=== PATIENT | female | born 1970 | race Caucasian/White ===

== ENCOUNTER 2020-07-30 09:17 | Outpatient (REF) | payer OTHER, SELFPAY ==
--- NOTE | ~2020-07-30 | US_ITS ---
EXAMINATION: US DIAGNOSTIC ULTRASOUND BREAST, RIGHT CLINICAL INFORMATION: Palpable abnormality superiorly. COMPARISON: Mammography of same day and studies dating back to August 20, 2014. TECHNIQUE: Ultrasound of the breast is performed with real-time walker scale imaging and color Doppler. FINDINGS: Ultrasound of the right breast in region of palpable abnormality 1:00 position 8 cm from nipple demonstrates a minimally complex large cyst with very thin septation without internal vascularity. There is a smooth back wall. The cyst measures approximately 4.0 x 2.4 cm in size. Ultrasound examination of the left breast in region of palpable abnormality demonstrates 2 adjacent cysts each measuring 1.5 cm in largest dimension. There are a few other smaller adjacent cysts are present. No suspicious solid masses or region of abnormal distal sound shadowing associated in either right or left breast. Results are discussed with the patient at time of visit. US/US breast RT limited IMPRESSION: Palpable abnormalities correspond to bilateral breast cysts. ASSESSMENT: BI-RADS 2: Benign RECOMMENDATION: Routine annual mammography screening.
--- NOTE | ~2020-07-30 | US_ITS ---
EXAMINATION: US DIAGNOSTIC ULTRASOUND BREAST, LEFT CLINICAL INFORMATION: Probable abnormality medially. COMPARISON: Mammography of same day and ultrasound study of September 04, 2019 and studies dating back to August 20, 2014. TECHNIQUE: Ultrasound of the breast is performed with real-time walker scale imaging and color Doppler. FINDINGS: Ultrasound of the right breast in region of palpable abnormality 1:00 position 8 cm from nipple demonstrates a minimally complex large cyst with very thin septation without internal vascularity. There is a smooth back wall. The cyst measures approximately 4.0 x 2.4 cm in size. Ultrasound examination of the left breast in region of palpable abnormality demonstrates 2 adjacent cysts each measuring 1.5 cm in largest dimension. There are a few other smaller adjacent cysts are present. No suspicious solid masses or region of abnormal distal sound shadowing associated in either right or left breast. Results are discussed with the patient at time of visit. US/US breast LT limited IMPRESSION: Palpable abnormalities correspond to bilateral breast cysts. ASSESSMENT: BI-RADS 2: Benign RECOMMENDATION: Routine annual mammography screening.
--- NOTE | ~2020-07-30 | MM_ITS ---
EXAMINATION: MM BREAST DIAGNOSTIC DIGITAL TOMOSYNTHESIS, BILATERAL US BREAST TARGETED, BILATERAL CLINICAL INFORMATION: Bilateral breast lumps The lifetime risk of breast cancer based on the Tyrer-Cuzick Model is 17.3%. COMPARISON: Mammography: 09/01/2019 and studies dating back to 08/20/2014. TECHNIQUE: Digital breast tomosynthesis is performed in both the craniocaudal and mediolateral oblique views along with computer-aided detection (CAD). Synthesized 2D images are generated from the tomosynthesis. Bilateral mediolateral, oblique, and craniocaudal views as well as right exaggerated craniocaudal view. Bilateral targeted breast ultrasound. FINDINGS: The breasts are extremely dense, which lowers the sensitivity of mammography (ACR BI-RADS breast composition Category d). The region of palpable abnormality, deep superior aspect of the right breast, there is noted be a well-circumscribed lesion measuring 4.1 cm in largest dimension. The palpable region about the medial aspect of the left breast is seen on mediolateral oblique projection image to be a circumscribed density measuring 1.0 cm in maximum dimension. Ultrasound of the right breast in region of palpable abnormality 1 o'clock position 8 cm from nipple, demonstrates a minimally complex large cyst with very thin septation without internal vascularity. There is a smooth back wall. The cyst measures approximately 4.0 x 2.4 cm in size. Ultrasound examination of the left breast in region of palpable abnormality demonstrates 2 adjacent cysts each measuring 1.5 cm in largest dimension. There are a few other smaller adjacent cysts present. No suspicious solid masses or region of abnormal distal sound shadowing associated in either right or left breast. Results are discussed with the patient at time of visit. MM/MM tomosynthesis diagnostic BI IMPRESSION: Palpable abnormalities correspond to bilateral breast cysts. ASSESSMENT: BI-RADS 2: Benign RECOMMENDATION: Routine annual mammography screening. This patient's information was entered into a reminder system with a target due date for their next mammogram.
== END 2020-07-30 09:18 | disposition home or self-care (01) ==
LOC: HO.MAMMO 09:17
PROVIDERS: PCP Internal Medicine; Visit Provider Internal Medicine
DX: N63.11 Unspecified lump in the right breast, upper outer quadrant (principal); N63.22 Unspecified lump in the left breast, upper inner quadrant
CPT/HCPCS: 76642; 77062; 77066

== ENCOUNTER 2020-09-13 09:15 | Outpatient (REF) | payer OTHER, SELFPAY ==
[2020-09-13 11:06] LABS: MANUAL DIFF FLAG NO
[2020-09-13 11:21] LABS: Basophils Percent Auto 0.4 % (0-2); Eosinophils Absolute Auto 2.1 X10*3/uL (0.0-0.4); Eosinophils Percent Auto 29.3 % (0-4); Hematocrit 40.2 % (37-47); Hemoglobin 13.6 g/dl (12.0-16.0); Imm Gran Abs Auto 0.01 X10*3/uL (0.00-0.03); Imm Gran Pct Auto 0.1 % (0.0-0.4); Lymphocytes Absolute Auto 1.7 X10*3/uL (1.2-4.9); Lymphocytes Percent Auto 23.5 % (20-40); Mean Corpuscular HGB Conc 33.8 g/dl (31.0-35.0); Mean Corpuscular Hemoglobin 30.9 pg (27.0-33.0); Mean Corpuscular Volume 91.4 fL (80-98); Mean Platelet Volume 10.5 fL (9.4-12.3); Monocytes Absolute Auto 0.4 X10*3/uL (0.1-1.2); Monocytes Percent Auto 5.2 % (2-11); Neutrophils Percent Auto 41.5 % (45-73); Platelet Count 151 X10*3/uL (160-400); Red Cell Distribution Width 12.5 % (11.0-16.0); White Blood Count 7.2 X10*3/uL (4.8-10.8)
[2020-09-13 11:39] LABS: Alanine Aminotransferase 7 U/L (0-31); Albumin Level 3.7 g/dL (3.5-5.0); Alkaline Phosphatase 43 U/L (39-117); Amylase 96 U/L (28-100); Anion Gap 8 (12-20); Aspartate Amino Transferase 16 U/L (5-31); Bilirubin Direct 0.2 mg/dL (0.0-0.5); Bilirubin Total 0.4 mg/dL (0.0-1.0); Blood Urea Nitrogen 18 mg/dL (9-16); Calcium 8.3 mg/dL (8.4-10.2); Carbon Dioxide 30 mmol/L (22-29); Chloride 105 mmol/L (96-108); Estimated Glomerular Filt Rate > 60; Glucose Random 73 mg/dL (60-115); Lipase 39 U/L (8-78); Sodium 139 mmol/L (135-145); Total Protein 5.9 g/dL (6.5-8.0)
== END 2020-09-13 09:16 | disposition home or self-care (01) ==
LOC: HO.HMGCLDS 09:15
PROVIDERS: PCP Internal Medicine; Visit Provider Nurse Practitioner Family
DX: R10.9 Unspecified abdominal pain (principal)
CPT/HCPCS: 36415; 80048; 80076; 82150; 83690; 85025

== ENCOUNTER 2020-09-16 06:08 | Outpatient (REF) | payer OTHER, SELFPAY ==
--- NOTE | ~2020-09-16 | CT_ITS ---
EXAMINATION: CT ABDOMEN AND PELVIS WITH CONTRAST CLINICAL INFORMATION: Abdominal pain. COMPARISON: None TECHNIQUE: Multidetector volumetric images were obtained from the superior aspect of the liver through the pubic symphysis following administration 100 mL of Omnipaque 350 intravenous and 4 50 mL of Redicat oral contrast. Sagittal and coronal reformatted images were obtained on the technologist's workstation. Oral contrast: No This CT examination was performed using dose optimization techniques as appropriate, variously including the following: *Automated exposure control *Adjustment of mA and/or kV according to patient size (this includes techniques or standardized protocols for targeted exams where dose is matched to indication/reason for exam; i.e. extremities or head) *Use of iterative reconstruction technique DLP: 312 mGy-cm FINDINGS: LUNG BASES: Minimal atelectatic changes of the lingula are noted. There is pectus excavatum deformity of the anterior chest wall. LIVER, GALLBLADDER, AND BILIARY TREE: There is a punctate 3 mm hypodensity in the right hepatic lobe posterior segment along the diaphragm on axial image 8/3. No additional lesions seen. No intrahepatic ductal dilatation. The gallbladder is unremarkable with no evidence of radiopaque gallstones, gallbladder wall thickening, or obvious pericholecystic inflammatory changes. PANCREAS: Unremarkable. SPLEEN: Unremarkable. ADRENAL GLANDS: Unremarkable. KIDNEYS AND URETERS: The kidneys are normal in size, shape, and attenuation. No hydronephrosis, hydroureter, or calculi seen. No perinephric stranding. BLADDER: Unremarkable. GASTROINTESTINAL TRACT: There is moderate stool, oral contrast and gas seen throughout the colon without any significant distention. Cecum lies in the right lower pelvis. Appendix is not visualized. The small bowel loops are normal caliber. No free fluid or inflammatory changes seen. ABDOMINAL WALL: No significant hernia is appreciated. LYMPH NODES: Normal. VASCULAR: Unremarkable. PELVIC VISCERA: The uterus is anteverted and appears unremarkable. No ovaries are unremarkable. Along the superior aspect of the uterus is a soft tissue lesion measuring 3.4 x 2.3 x 3.2 cm and appears heterogeneous. This may represent an exophytic fibroid, peritoneal lesion. Abnormal appearing appendix cannot be excluded. A slightly enhancing or hypodense lesion is seen in the right body of uterus, It measures 1.7 x 1.6 x 1.6 cm likely a fibroid. There is a punctate hypodensity within the anterior wall calcification in the mid anterior body of the uterus likely additional fibroid. There is no free fluid in the cul-de-sac. OSSEOUS STRUCTURES: Mild degenerative disc changes L5-S1 disc level is noted. No visible fracture or dislocation. CT/CT abdomen pelvis w con IMPRESSION: There are several lesions in the uterus most with a fibroid. There is an exophytic lesion along the posterior wall of the body of the uterus which is heterogeneous and the largest with central hypodensity likely degenerating fibroid. Moderate to significant constipation. Appendix is not seen. There is no obstruction or inflammatory changes.. Punctate hypodensity right hepatic lobe likely simple cysts.
[2020-09-16] MEDS: iohexoL 350 MG/ML 100 ML INFUS..BTL IV (09:54)
== END 2020-09-16 06:09 | disposition home or self-care (01) ==
LOC: HO.CT 06:08
PROVIDERS: Visit Provider Nurse Practitioner Family
DX: R10.9 Unspecified abdominal pain (principal)
CPT/HCPCS: 74177; Q9967

== ENCOUNTER 2021-08-10 16:00 | Outpatient (REF) | payer OTHER, SELFPAY ==
--- NOTE | ~2021-08-10 | MM_ITS ---
EXAMINATION: MM SCREENING DIGITAL BREAST TOMOSYNTHESIS, BILATERAL CLINICAL INFORMATION: Screening. Asymptomatic. Family history breast cancer, mother. The lifetime risk of breast cancer based on the Tyrer-Cuzick Model is 19.9%. COMPARISON: Mammography: 07/30/2020, 09/01/2019, 09/06/2018, 08/27/2018; bilateral breast ultrasound 07/30/2020, 09/04/2019 TECHNIQUE: Digital breast tomosynthesis is performed in both the craniocaudal and mediolateral oblique views along with computer-aided detection (CAD). Synthesized 2D images are generated from the tomosynthesis. Additional bilateral CC and views are provided. Technologist notes technically challenging exam, tailored to patient body habitus. FINDINGS: The breasts are heterogeneously dense, which may obscure small masses (ACR BI-RADS breast composition Category c). Breast tissue composition borders on extremely dense. There is no significant mass, architectural abnormality, or developing density. No abnormal calcifications. There is a dominant smooth oval mass anterior upper left breast corresponding to a dominant cyst on prior ultrasound. The cyst posterior upper right breast appears decreased. The axilla are unremarkable. MM/MM tomosynthesis screening BI IMPRESSION: No significant changes from prior studies. ASSESSMENT: BI-RADS 2: Benign RECOMMENDATION: Routine annual mammography screening. This patient's information was entered into a reminder system with a target due date for their next mammogram.
== END 2021-08-10 16:01 | disposition home or self-care (01) ==
LOC: HO.MAMMO 16:00
PROVIDERS: PCP Internal Medicine; Visit Provider Internal Medicine
DX: Z12.31 Encounter for screening mammogram for malignant neoplasm of breast (principal)
CPT/HCPCS: 77063; 77067

== ENCOUNTER 2021-08-11 08:33 | Outpatient (REF) | payer OTHER, SELFPAY ==
[2021-08-11 14:03] LABS: CT PCR NOT DETECTED (Not Detect.); NG PCR NOT DETECTED (Not Detect.)
[2021-08-12 09:15] LABS: BV Int Neg Control Negative (Negative); BV Int Pos Control Positive (Positive)
[2021-08-18 06:46] LABS: HPV mRNA E6/E7 rflx Not Detected (Not Detected)
== END 2021-08-11 08:34 | disposition home or self-care (01) ==
LOC: HO.LAB 08:33
PROVIDERS: Visit Provider Advanced Practice Midwife
DX: Z01.419 Encounter for gynecological examination (general) (routine) without abnormal findings (principal); Z11.51 Encounter for screening for human papillomavirus (HPV)
CPT/HCPCS: 87480; 87491; 87510; 87591; 87624; 87660; 88142

== ENCOUNTER 2021-09-06 14:23 | Outpatient (REF) | payer OTHER, SELFPAY | END 2021-09-06 14:24 | disposition home or self-care (01) | LOC: HO.LNP 14:23 | PROVIDERS: Visit Provider Emergency Medicine | DX: R30.0 Dysuria (principal) | CPT/HCPCS: 87086; 87088; 87186 ==

== ENCOUNTER 2022-04-20 12:55 | Outpatient (AMB) | payer OTHER, SELFPAY ==
--- NOTE | 2022-04-20 13:03 | A.OFFPC_ITS ---
Vital Signs 04/20/22 13:09 Height 5 ft 7 in Weight 132 lb BMI 20.7 BP 104/70 Blood Pressure Location Rt brachial Position Sitting Pulse 68 Pulse Source Pulse Oximeter Pulse Oximetry (%) 98 Oxygen Delivery Method Room Air Intake Visit Reasons: Physical exam Intake Note: Pt is here today for her PE Allergies No Known Allergies Allergy (Unknown, Verified 03/19/23 13:28) UNK Medication List - Last Reconciled 04/20/22 by Vicenta Ornelas MD albuterol sulfate 90 mcg/actuation 2 puffs inhalation Q6H PRN Tobacco use date assessed: 04/20/22 HPI Physical exam HPI Details 51-year-old lady here today for physical exam. She is up-to-date with her screening mammogram, due again in July 2022, and is up-to-date with her routine Pap and pelvic exam, [place] [facility], last Pap smear was done July 2021 with negative findings. She takes hydroxyzine as needed for acute anxiety attacks . Complains of having irregular periods, with occasional heavy menstrual bleeding seen. Complains of feeling tired all the time for the last several months now. Denies any accompanying chest pain, no shortness of breath or lightheadedness. [facility] Medical History (Updated 04/13/23 @ 15:16 by Vicenta Ornelas MD) Generalized anxiety disorder Acute urticaria Urinary incontinence in female Uterine fibroid Fatigue Annual visit for general adult medical examination with abnormal findings Family history of breast cancer in mother History of umbilical hernia Surgical History Hx of section Family History Father Hx of diabetes mellitus Mother HX: breast cancer Paternal Grandfather Colon cancer Social History Household Members: Spouse and Children Housing: House Alcohol intake: current Patient Tobacco Use Status: Never used Tobacco e-Cigarette/Vaping Use: Never Used service: No Current occupational status: employed Sexual orientation: Straight/Heterosexual Gender identity: Female Cognitive needs: No Hearing needs: No Vision needs: Yes Female Reproductive History Menstrual Age of Menarche: 17 Questionnaire PHQ-9 Over the last 2 weeks, how often have you been bothered by any of the following problems? 1. Little interest or pleasure in doing things: not at all 2. Feeling down, depressed, or hopeless: not at all 3. Trouble falling or staying asleep, or sleeping too much: more than half the days 4. Feeling tired or having little energy: nearly every day 5. Poor appetite or overeating: not at all 6. Feeling bad about yourself - or that you are a failure or have let yourself or your family down: not at all 7. Trouble concentrating on things, such as reading the newspaper or watching television: not at all 8. Moving or speaking so slowly that other people could have noticed. Or the opposite - being so fidgety or restless that you have been moving around a lot more than usual: not at all 9. Thoughts that you would be better off or of hurting yourself in some way: not at all Total score: 5 Depression Screening Interpretation: Negative 68619 - PHQ-9 Billing: Yes Source: Developed by Drs. Mohamud March, Anuja Cornejo, Diego Dai and colleagues, with an educational amanda from [employer]. Thrive Questionnaire Declines Thrive assessment: No Date Thrive assessed: 04/20/22 I am a: Patient What is your living situation today?: I have a steady place to live Within the past 12 months, did the food you bought not last and you didn't have the money to get more?: Never true Within the past 12 months, did you worry whether your food would run out before you got money to buy more?: Never true Do you have trouble paying for medicines?: No Do you have trouble getting transportation to medical appointments?: No Do you have trouble paying your heating and electricity bill?: No Do you have trouble taking care of your child, family member or friend?: No Do you have trouble with day-to-day activities such as bathing, preparing meals, shopping, managing finances, etc.?: No Are you currently unemployed and looking for a job?: No Are you interested in more education?: No AUDIT C Alcohol Use Questionnaire (AUDIT-C) 1. How often do you have a drink containing alcohol?: Never Total Score: 0 KENN-7 AMB Questionnaire KENN-7 Date KENN - 7 assessed: 04/20/22 Feeling nervous, anxious, or on edge: 1 = Several days Not being able to stop or control worryin = Nearly every day Worrying too much about different things: 3 = Nearly every day Trouble relaxin = Several days Being so restless that it is hard to sit still: 0 = Not at all Becoming easily annoyed or irritable: 1 = Several days Feeling afraid as if something awful might happen: 2 = More than half the days Total KENN-7 score (0-4 normal; 5-9 mild; 10-14 moderate; 15-21 severe): 11 Source: Developed by Drs. Mohamud March, Anuja Cornejo, Diego Dai and colleagues, with an educational amanda from [employer]. KENN-7 Assessment Billing KENN-7 Assessment Tool: KENN-7 Assessment 24497 Review of Systems Const Reports no additional complaints Eyes Denies itchy eyes ENT Reports no additional complaints and Denies lip swelling Card Denies chest pain, Denies rapid heart rate, Denies irregular heart rhythm, Denies lightheadedness and Denies dyspnea Resp Denies cough, Denies dyspnea and Denies wheezing GI Reports no additional complaints Reports no additional complaints Musc Reports no additional complaints Skin/Breast Reports as per HPI Neuro Reports no additional complaints Psych Reports as per HPI Endo Reports no additional complaints Remigio/Lymph Reports no additional complaints Aller/Immun Reports as per HPI, Denies itchy eyes, Denies lip swelling, Denies seasonal rhinorrhea and Denies wheezing Physical exam (Primary Care) Vital Signs: Last Vital Signs Pulse 68 04/20/22 13:09 BP 104/70 04/20/22 13:09 Pulse Ox 98 04/20/22 13:09 Oxygen Delivery Method Room Air 04/20/22 13:09 BMI result Body Mass Index 20.7 Tobacco/Smoking Status: Tobacco use Status Tobacco use date assessed 04/20/22 04/20/22 13:06 Patient Tobacco Use Status Never used Tobacco 04/20/22 13:06 e-Cigarette/Vaping Use Never Used 04/20/22 13:15 PHQ-9: PHQ-9 Score PHQ-9: Total score 8 04/20/22 13:53 Depression Screening Interpretation: Negative Thrive Assessment: Date of Thrive Assessment Date Thrive assessed 04/20/22 04/20/22 13:15 Const General: no acute distress and alert Nutritional Appearance: average body habitus Orientation/consciousness: patient oriented x3 HENKS Head: Yes normocephalic and Yes atraumatic Ears: external ears normal, TM's normal bilaterally and EAC's normal General nose exam: Normal external nose present and No nasal discharge present Face and sinus: Yes face symmetric Mouth: Normal oral and palatal mucosa present, tongue normal, oropharynx normal and moist mucous membranes Eyes General: appearance normal, both eyes and all related structures Eyelids: Yes eyelids normal Conjunctivae: conjunctivae normal Sclerae: sclerae normal Pupils: Equal, round and reactive pupils present EOM: EOMs intact bilaterally Neck Neck: Yes full ROM, Yes no lymphadenopathy and Yes supple Thyroid: Thyroid normal Chest Chest palpation & inspection: normal inspection of the chest Breast/axilla palpation: normal palpation of the breasts and normal palpation of the axillae Resp Effort & Inspection: normal respiratory effort and able to speak in complete sentences Auscultation: clear to auscultation bilaterally Cardio Rate: regular rate Rhythm: regular rhythm Heart sounds: S1 normal heart sound present and S2 normal heart sound present GI Palpation (GI): Soft to palpation, nontender, no guarding and no masses Auscultation: normal bowel sounds General: Yes no CVA tenderness Back/Spine/Pelvis Back: no CVA tenderness and No back tenderness Skin General skin exam: no rashes or lesions noted Neuro General: patient oriented x3, gait normal, moves all extremities, Normal light touch and pain sensation, no focal motor deficits and CN's II-XI intact bilaterally Cranial nerves: Yes Equal, round and reactive pupils present Cognition (Neuro): normal cognition Gait exam (Neuro): Normal gait present Motor exam (neuro): 5/5 motor strength present throughout Extrem General: Yes normal to inspection, Yes full ROM, Yes no joint enlargement, Yes no pedal edema and Yes normal gait Psych Appearance: grossly normal and well kempt Mental Status: mental status grossly normal Speech and movement: Normal speech and movement present Affect: normal affect Attitude: cooperative Thought process: Normal thought process present Thought content: Normal thought content present Assessment and Plan Assessment & Plan (1) Annual visit for general adult medical examination with abnormal findings: Code(s): Z00.01 - Encounter for general adult medical examination with abnormal findings Plan: Will check appropriate labs. Continue with regular dental visit every 6 months and regular eye exams, at least every 2 years. Take adequate calcium in diet and vitamin-D 3 at 2000 IU per cap once a day, in addition to weight-bearing exercises to help maintain good muscle tone and weight control. Instructed to do self-breast exam, and continue with yearly mammogram. Currently being followed [place] [facility] [place] [place] [facility] for her routine Pap and pelvic exam. Currently up-to-date.. She has had 2 COVID vaccines but does not want to get a COVID booster, up-to-date with her flu shot and pneumonia vaccine, reminded that she is eligible to get shingles vaccination. Reminded to get her initial colon cancer screening, patient declined referral at this time (2) Heavy menstrual bleeding: Code(s): N92.0 - Excessive and frequent menstruation with regular cycle Qualifiers: Menorrhagia type: premenopausal Qualified Code(s): N92.4 - Excessive bleeding in the premenopausal period Plan: Has history of uterine fibroids, and going through the change. Has a scheduled appointment already for follow-up with her OBGYN for further evaluation management peer (3) Family history of breast cancer in mother: Code(s): Z80.3 - Family history of malignant neoplasm of breast Plan: Patient already scheduled for her yearly screening mammogram. Counseled to do regular breast checks (4) Fatigue: Code(s): R53.83 - Other fatigue Qualifiers: Fatigue type: chronic, unspecified Qualified Code(s): R53.82 - Chronic fatigue, unspecified Plan: Labs ordered to check TSH with reflex jessica T4, CBC, vitamin-D level compressive metabolic panel, vitamin B12 folic acid, with results still pending. (5) Generalized anxiety disorder: Code(s): F41.1 - Generalized anxiety disorder Orders: Orders Comprehensive [facility]. Panel Fast 04/20/22 N92.0 - Excessive and frequent menstruation with regular cycle, Z00.01 - Encounter for general adult medical examination with abnormal findings, R53.83 - Other fatigue Vitamin B12 and Folate 04/20/22 N92.0 - Excessive and frequent menstruation with regular cycle, Z00.01 - Encounter for general adult medical examination with abnormal findings, R53.83 - Other fatigue Lipid Panel 04/20/22 N92.0 - Excessive and frequent menstruation with regular cycle, Z00.01 - Encounter for general adult medical examination with abnormal findings, R53.83 - Other fatigue Vitamin D 25-OH Total 03 N92.0 - Excessive and frequent menstruation with regular cycle, Z00.01 - Encounter for general adult medical examination with abnormal findings, R53.83 - Other fatigue TSH reflex Free T4 03 N92.0 - Excessive and frequent menstruation with regular cycle, Z00.01 - Encounter for general adult medical examination with abnormal findings, R53.83 - Other fatigue Complete Blood Count Auto Diff 04/20/22 N92.0 - Excessive and frequent menstruation with regular cycle, Z00.01 - Encounter for general adult medical examination with abnormal findings, R53.83 - Other fatigue Coding Level of Care Code Est Pt Prev Care 40-64y([id number]) Diagnoses Annual visit for general adult medical examination with abnormal findings Z00.01 Excessive bleeding in premenopausal period N92.4 Menorrhagia type: premenopausal Family history of breast cancer in mother Z80.3 Chronic fatigue R53.82 Fatigue type: chronic, unspecified Generalized anxiety disorder F41.1 Additional Codes KENN-7 Assessment Billing - KENN-7 Assessment Tool: KENN-7 Assessment 32500 ([id number])
[2022-04-20 13:09] VITALS: BP 104/70; PULSE 68; O2SAT 98; BMI 20.7
== END 2022-04-20 13:53 | disposition home or self-care (01) ==
LOC: HO.HMGC 12:55
PROVIDERS: PCP Internal Medicine; Visit Provider Internal Medicine
DX: Z00.01 Encounter for general adult medical examination with abnormal findings (principal); N92.4 Excessive bleeding in the premenopausal period; Z80.3 Family history of malignant neoplasm of breast; R53.82 Chronic fatigue, unspecified; F41.1 Generalized anxiety disorder
CPT/HCPCS: 96127; 99396; 99499

== ENCOUNTER 2022-08-14 07:18 | Outpatient (REF) | payer OTHER, SELFPAY ==
--- NOTE | ~2022-08-14 | MM_ITS ---
EXAMINATION: MM SCREENING DIGITAL BREAST TOMOSYNTHESIS, BILATERAL CLINICAL INFORMATION: Screening. Asymptomatic. Family history breast cancer, mother at age 50. The lifetime risk of breast cancer based on the Tyrer-Cuzick Model is 19%. COMPARISON: Mammography: 08/10/2021, 07/30/2020, 09/01/2019, 09/06/2018; bilateral breast ultrasound 07/30/2020. TECHNIQUE: Digital breast tomosynthesis is performed in both the craniocaudal and mediolateral oblique views along with computer-aided detection (CAD). Synthesized 2D images are generated from the tomosynthesis. FINDINGS: The breasts are heterogeneously dense, which may obscure small masses (ACR BI-RADS breast composition Category c). Breast tissue composition borders on extremely dense. There are waxing and waning fibrocystic changes from year to year. No significant mass or architectural abnormality. No abnormal calcifications. The axilla and skin contours are unremarkable. MM/MM tomosynthesis screening BI IMPRESSION: No significant changes from prior studies. ASSESSMENT: BI-RADS 2: Benign RECOMMENDATION: -Routine annual mammography screening. -Given the breast density and family history, patient may benefit from additional adjunct screening with bilateral ultrasound. This patient's information was entered into a reminder system with a target due date for their next mammogram.
== END 2022-08-14 07:19 | disposition home or self-care (01) ==
LOC: HO.MAMMO 07:18
PROVIDERS: PCP Internal Medicine; Visit Provider Internal Medicine
DX: Z12.31 Encounter for screening mammogram for malignant neoplasm of breast (principal)
CPT/HCPCS: 77063; 77067

== ENCOUNTER 2022-08-29 10:02 | Outpatient (AMB) | payer OTHER, SELFPAY ==
--- NOTE | 2022-08-29 10:03 | A.OFFVIS_ITS ---
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 Scribed for LIZ Dowling by Odette Pineda medical transport specialist, on 08/29/2022 at 10:15 am EST. Keno Writer / Runner: Keno Writer / Runner Present (Rosey) Allergies No Known Allergies Allergy (Unknown, Verified 08/29/22 10:05) UNK Is last menstrual period known: Yes Last menstrual period: 08/05/22 HPI HPI Comments History of Present Illness Details She is presenting for annual exam with complaint of urinary frequency, and incontinence. Admits to not drinking well (1/2 a bottle a day), including beverages with artificial sweeteners. Reports irregular menses (spacing out-skipping a few months at a time), and decrease in volume. Denies having hot flashes. Patient admits she tries to eat a healthy diet including Calcium and Vitamin D. She stays active with exercise. Currently sexually active with vaginal pain since giving , reports a narrow opening is the concern. Denies vaginal itching and irritation. Hx. of fibroids. STD screening offered; she declines. Denies family hx of ovarian cancer. Last pap smear 08/11/21. Last mammogram 08/14/22. [facility] Medical History Annual visit for general adult medical examination with abnormal findings Family history of breast cancer in mother Fatigue History of umbilical hernia Masses of both breasts Urinary incontinence in female Uterine fibroid Surgical History Hx of section Family History Father Hx of diabetes mellitus Mother HX: breast cancer Paternal Grandfather Colon cancer Social History Household Members: Spouse and Children Housing: House Alcohol intake: current Patient Tobacco Use Status: Never used Tobacco e-Cigarette/Vaping Use: Never Used service: No Current occupational status: employed Sexual orientation: Straight/Heterosexual Gender identity: Female Cognitive needs: No Hearing needs: No Vision needs: Yes Female Reproductive History Menstrual Age of Menarche: 17 Duration of menses: 3-5 days Date of last menstrual period: 08/05/22 Total pregnancies: 4 Full term: 2 Number of Living Children: 2 Ab induced: 1 Ab spontaneous: 1 Date of last pap smear: 08/11/21 (neg pap and hpv) Date of Mammogram: 08/14/22 Physical Exam Vital Signs: Last Vital Signs BP 100/60 08/29/22 10:05 BMI result Body Mass Index 20.7 Const General: cooperative, healthy appearing, no acute distress, well developed and alert Orientation/consciousness: patient oriented x3 HEENT Head: Yes normal to inspection Eyes General: appearance normal, both eyes and all related structures Neck Other: skin lesion on right side of neck Neck: Yes normal visual inspection Thyroid: Thyroid normal Chest Chest palpation & inspection: normal inspection of the chest Breast/axilla inspection: normal inspection of the breasts (no puckering, dimpling, peau de orange, retraction, discharge, masses) Breast/axilla palpation: normal palpation of the breasts Resp Effort & Inspection: normal respiratory effort GI Other: smith angioma on torso Inspection: Yes normal to inspection Palpation (GI): Soft to palpation (to palpation) Rectal Exam - Female: deferred General: Yes bladder normal to inspection External Female Exam: normal external appearance and normal appearance of the urethra Speculum Exam - Vagina: normal appearance of the vagina, normal palpation and normal vaginal discharge Speculum Exam - Cervix: normal appearance of the cervix and normal palpation Bimanual exam- vagina & uterus: normal palpation and normal palpation Bimanual Exam- Adnexa, other: normal adnexae and no masses Skin General skin exam: no rashes or lesions noted Neuro General: patient oriented x3 Cognition (Neuro): normal cognition Extrem General: Yes normal to inspection Psych Attitude: cooperative Thought process: Normal thought process present Thought content: Normal thought content present Assessment & Plan Assessment & Plan (1) Encounter for annual routine gynecological examination: Code(s): Z01.419 - Encounter for gynecological examination (general) (routine) without abnormal findings Plan: Discussed: Current recommendations for pap smears per ASCCP guidelines Breast awareness and periodic self breast exams. Maintaining a healthy lifestyle including a well balanced diet and routine exercise. Encouraged to use condoms for prevention. Pt. declined test today. Advised using lubrication for painful intimacy-offered a referral pelvic floor specialty, and incontinence, also consider vaginal dilators-she declines. Encouraged patient to sign up for patient portal. Referral with Urologist regarding incontinence-pt. accepts. US regarding uterine fibroids; follow up for results. Counseled re: perimenopause vs menopause. Monitor periods, report any unscheduled bleeding, bleeding episodes less than 21 days apart or heavy prolonged menstrual bleeding. Offered Barrel Straightener referral regarding skin lesion on neck-pt. accepts. All of her questions and concerns were addressed to the best of my ability. She is agreeable to plan of care. RTO in one year for AG. (2) Skin lesion: Code(s): L98.9 - Disorder of the skin and subcutaneous tissue, unspecified (3) Urinary incontinence in female: Code(s): R32 - Unspecified urinary incontinence (4) Uterine fibroid: Code(s): D25.9 - Leiomyoma of uterus, unspecified Orders: Orders US pelvic and transvaginal Today D25.9 - Leiomyoma of uterus, unspecified Referrals Urology Referral N39.3 - Stress incontinence (female) (male) Dermatology Referral L98.9 - Disorder of the skin and subcutaneous tissue, unspecified Coding Level of Care Code Est Pt Prev Care 40-64y(08316) Diagnoses Encounter for annual routine gynecological examination Z01.419 Skin lesion L98.9 Urinary incontinence in female R32 Uterine fibroid D25.9
[2022-08-29 10:05] VITALS: BP 100/60; BMI 20.7
== END 2022-08-29 10:35 | disposition home or self-care (01) ==
LOC: HO.HWS 10:02
PROVIDERS: PCP Internal Medicine; Visit Provider Advanced Practice Midwife
DX: Z01.419 Encounter for gynecological examination (general) (routine) without abnormal findings (principal); L98.9 Disorder of the skin and subcutaneous tissue, unspecified; R32 Unspecified urinary incontinence; D25.9 Leiomyoma of uterus, unspecified
CPT/HCPCS: 99396

== ENCOUNTER → 2022-08-29 10:02 | Outpatient (BNVA) | payer OTHER, SELFPAY | PROVIDERS: PCP Internal Medicine; Visit Provider Advanced Practice Midwife ==

== ENCOUNTER 2023-03-19 13:08 | Outpatient (AMB) | payer OTHER, SELFPAY ==
--- NOTE | 2023-03-19 13:05 | MHC.PC.OV ---
Intake Visit Reasons: Rash on scalp and hip Allergies No Known Allergies Allergy (Unknown, Verified 03/19/23 13:28) UNK Medication List - Last Reconciled 03/19/23 by Vicenta Ornelas MD albuterol sulfate 90 mcg/actuation 2 puffs inhalation Q6H PRN ketoconazole 1% (Nizoral A-D) 1 appl topical 2XW triamcinolone acetonide 0.025% appl topical Tobacco use date assessed: 03/19/23 Dental Screening Dental Screen Date: 03/19/23 Did you have a dental visit in the last 12 months?: Yes Did you have a dental problem in the last 6 months where you did not have access to dental care?: No Was dental information given to patient?: Patient has dentist HPI HPI Comments History of Present Illness Details 52-year-old lady here today complaining of acute onset of very pruritic rash on her hip which started out as raised papular lesion which has spread around her hip area where the elastic of her underwear is hitting, now present in both hips. She also complains of extremely pruritic rash on her posterior hairline, which has been present now for the last several days. She had a telehealth visit with [facility] physician, who prescribed her triamcinolone cream, which has not afforded any relief. She also has tried using her 's Nizoral shampoo, thinking that it was dandruff, again no relief. No history of any recent travel, no other household members have similar symptoms. She also has been having frequent anxiety attacks over the last month, been able to control it breathing exercises and behavioral techniques. Does not want to start any medication or referral for counseling at present time. [facility] Medical History (Updated 03/19/23 @ 13:48 by Vicenta Ornelas MD) Generalized anxiety disorder Acute urticaria Urinary incontinence in female Uterine fibroid Fatigue Annual visit for general adult medical examination with abnormal findings Family history of breast cancer in mother Masses of both breasts History of umbilical hernia Surgical History Hx of section Family History Father Hx of diabetes mellitus Mother HX: breast cancer Paternal Grandfather Colon cancer Social History Household Members: Spouse and Children Housing: House Alcohol intake: current Patient Tobacco Use Status: Never used Tobacco e-Cigarette/Vaping Use: Never Used service: No Current occupational status: employed Sexual orientation: Straight/Heterosexual Gender identity: Female Cognitive needs: No Hearing needs: No Vision needs: Yes Female Reproductive History Menstrual Age of Menarche: 17 Questionnaire PHQ-9 Over the last 2 weeks, how often have you been bothered by any of the following problems? 1. Little interest or pleasure in doing things: not at all 2. Feeling down, depressed, or hopeless: not at all 3. Trouble falling or staying asleep, or sleeping too much: not at all 4. Feeling tired or having little energy: not at all 5. Poor appetite or overeating: not at all 6. Feeling bad about yourself - or that you are a failure or have let yourself or your family down: not at all 7. Trouble concentrating on things, such as reading the newspaper or watching television: not at all 8. Moving or speaking so slowly that other people could have noticed. Or the opposite - being so fidgety or restless that you have been moving around a lot more than usual: not at all 9. Thoughts that you would be better off or of hurting yourself in some way: not at all Total score: 0 Depression Screening Interpretation: Negative Depression Screening Done: Yes 58856 - PHQ-9 Billing: Yes Source: Developed by Drs. Mohamud March, Anuja Cornejo, Diego Dai and colleagues, with an educational amanda from [employer]. Thrive Questionnaire Date Thrive assessed: 03/19/23 I am a: Patient What is your living situation today?: I have a steady place to live Within the past 12 months, did the food you bought not last and you didn't have the money to get more?: Never true Within the past 12 months, did you worry whether your food would run out before you got money to buy more?: Never true Do you have trouble paying for medicines?: No Do you have trouble getting transportation to medical appointments?: No Do you have trouble paying your heating and electricity bill?: No Do you have trouble taking care of your child, family member or friend?: No Do you have trouble with day-to-day activities such as bathing, preparing meals, shopping, managing finances, etc.?: No Are you currently unemployed and looking for a job?: No Are you interested in more education?: No THRIVE Score: 0 AUDIT C Alcohol Use Questionnaire (AUDIT-C) 1. How often do you have a drink containing alcohol?: Never Total Score: 0 KENN-7 AMB Questionnaire KENN-7 Date KENN - 7 assessed: 03/19/23 Feeling nervous, anxious, or on edge: 1 = Several days Not being able to stop or control worryin = Several days Worrying too much about different things: 2 = More than half the days Trouble relaxin = Several days Being so restless that it is hard to sit still: 1 = Several days Becoming easily annoyed or irritable: 1 = Several days Feeling afraid as if something awful might happen: 0 = Not at all Total KENN-7 score (0-4 normal; 5-9 mild; 10-14 moderate; 15-21 severe): 7 Source: Developed by Drs. Mohamud March, Anuja Cornejo, Diego Dai and colleagues, with an educational amanda from [employer]. KENN-7 Assessment Billing KENN-7 Assessment Tool: KENN-7 Assessment 82231 Review of Systems Const Reports no additional complaints Eyes Denies itchy eyes ENT Reports no additional complaints and Denies lip swelling Card Denies chest pain, Denies rapid heart rate, Denies irregular heart rhythm, Denies lightheadedness and Denies dyspnea Resp Denies cough, Denies dyspnea and Denies wheezing GI Reports no additional complaints Reports no additional complaints Musc Reports no additional complaints Skin/Breast Reports as per HPI Neuro Reports no additional complaints Psych Reports as per HPI Endo Reports no additional complaints Remigio/Lymph Reports no additional complaints Aller/Immun Reports as per HPI, Denies itchy eyes, Denies lip swelling, Denies seasonal rhinorrhea and Denies wheezing Physical exam (Primary Care) Tobacco/Smoking Status: Tobacco use Status Tobacco use date assessed 03/19/23 03/19/23 13:05 Patient Tobacco Use Status Never used Tobacco 03/19/23 13:05 e-Cigarette/Vaping Use Never Used 03/19/23 13:05 PHQ-9: PHQ-9 Score PHQ-9: Total score 0 03/19/23 13:07 Depression Screening Interpretation: Negative Thrive Assessment: Date of Thrive Assessment Date Thrive assessed 03/19/23 03/19/23 13:07 Skin Other: Scattered wheals noted over the hip area as seen on telehealth video Telehealth Telehealth Location of provider rendering services: practice address Location of patient: address on file Patient Identification confirmed using: Name, : Yes Telehealth method: video Patient verbally consented to treatment: Yes Patient verbally consented to billing insurance company: Yes Patient informed of any privacy concerns related to visit: Yes Minutes spent on Phone/Video with Pt.: 15 Assessment and Plan Assessment & Plan (1) Acute urticaria: Code(s): L50.8 - Other urticaria Plan: Prescription sent for hydroxyzine 25 mg per tablet to take 1 tablet at bedtime. Patient cautioned that medication may cause drowsiness, not operate any machinery or drive when taking it. Prescription also sent for clobetasol cream 0.05% to apply sparingly to affected area twice a day for no more than 10 days at a time, call in a week if no improvement of symptoms noted (2) Acute eczema: Code(s): L30.9 - Dermatitis, unspecified Plan: Prescription sent for hydroxyzine 25 mg per tablet to take 1 tablet at bedtime. Patient cautioned that medication may cause drowsiness, not operate any machinery or drive when taking it. Prescription also sent for clobetasol cream 0.05% to apply sparingly to affected area twice a day for no more than 10 days at a time, call in a week if no improvement of symptoms noted (3) Generalized anxiety disorder: Code(s): F41.1 - Generalized anxiety disorder Plan: Patient states that she has been able to control her anxiety attacks through breathing exercises in behavioral techniques, does not wish to start any medication were get counseling at present time. Medications: New hydroxyzine HCl 25 mg PO BEDTIME PRN 30 tabs 0RF itching/rash clobetasol 0.05% 1 appl topical BID 2 weeks 30 grams 0RF Coding Level of Care Code Tele Est Pt Level 3 (84353) Diagnoses Acute urticaria L50.8 Acute eczema L30.9 Generalized anxiety disorder F41.1 Additional Codes KENN-7 Assessment Billing - KENN-7 Assessment Tool: KENN-7 Assessment 73158 ([id number])
== END 2023-03-19 16:07 | disposition home or self-care (01) ==
LOC: HO.HMGC 13:08
PROVIDERS: PCP Internal Medicine; Visit Provider Internal Medicine
DX: L50.8 Other urticaria (principal); L30.9 Dermatitis, unspecified; F41.1 Generalized anxiety disorder
CPT/HCPCS: 99213

== ENCOUNTER 2023-04-17 07:39 | Outpatient (REF) | payer OTHER, SELFPAY ==
[2023-04-17 10:17] LABS: MANUAL DIFF FLAG NO
[2023-04-17 10:38] LABS: Basophils Percent Auto 0.6 % (0-2); Eosinophils Absolute Auto 0.4 X10*3/uL (0.0-0.4); Eosinophils Percent Auto 7.6 % (0-4); Hematocrit 42.2 % (37.0-47.0); Hemoglobin 14.6 g/dl (12.0-16.0); Lymphocytes Absolute Auto 1.6 X10*3/uL (1.2-4.9); Lymphocytes Percent Auto 33.1 % (20-40); Mean Corpuscular HGB Conc 34.6 g/dl (31.0-35.0); Mean Corpuscular Hemoglobin 30.2 pg (27.0-33.0); Mean Corpuscular Volume 87.4 fL (80.0-98.0); Mean Platelet Volume 9.9 fL (9.4-12.3); Monocytes Absolute Auto 0.4 X10*3/uL (0.1-1.2); Monocytes Percent Auto 8.4 % (2-11); Neutrophils Absolute Auto 2.5 x10*3/uL (2.0-8.3); Neutrophils Percent Auto 50.3 % (45-73); Platelet Count 163 X10*3/uL (160-400); Red Blood Count 4.83 X10*6/uL (4.20-5.50); Red Cell Distribution Width 12.2 % (11.0-16.0); White Blood Count 4.9 X10*3/uL (4.8-10.8)
[2023-04-17 11:43] LABS: Alanine Aminotransferase 21 U/L (0-31); Albumin Level 4.3 g/dL (3.5-5.0); Alkaline Phosphatase 52 U/L (39-117); Anion Gap 10 (12-20); Aspartate Amino Transferase 25 U/L (5-31); Bilirubin Total 0.7 mg/dL (0.0-1.0); Blood Urea Nitrogen 23 mg/dL (9-16); Calcium 9.6 mg/dL (8.4-10.2); Carbon Dioxide 29 mmol/L (22-29); Chloride 106 mmol/L (96-108); Cholesterol 156 mg/dL (<200); Estimated Glomerular Filt Rate > 60; Glucose Fasting 83 mg/dL (60-99); HDL Cholesterol 50 mg/dL (>40); LDL Cholesterol Calculated 92 mg/dL (<100); Potassium 4.3 mmol/L (3.3-5.1); Sodium 141 mmol/L (135-145); TSH reflex Free T4 2.11 uIU/mL (0.32-4.0); Total Protein 7.2 g/dL (6.5-8.0); Triglycerides 72 mg/dL (<150); Vitamin D 25-OH Total 99.1 ng/mL (>30)
[2023-04-17 17:04] LABS: Folate 9.7 ng/mL (> or = 4.0)
[2023-04-18 15:56] LABS: Vitamin B12 > 2000 pg/mL (200-900)
== END 2023-04-17 07:40 | disposition home or self-care (01) ==
LOC: HO.HMGCLDS 07:39
PROVIDERS: PCP Internal Medicine; Visit Provider Internal Medicine
DX: Z00.01 Encounter for general adult medical examination with abnormal findings (principal); R53.83 Other fatigue; N92.0 Excessive and frequent menstruation with regular cycle
CPT/HCPCS: 36415; 80053; 80061; 82306; 82607; 82746; 84443; 85025

== ENCOUNTER 2023-04-20 12:24 | Outpatient (AMB) | payer OTHER, SELFPAY ==
--- NOTE | 2023-04-20 12:55 | A.OFFPC_ITS ---
Vital Signs 04/20/23 12:56 Height 5 ft 7 in Weight 142 lb BMI 22.2 BP 104/66 Blood Pressure Location Lt brachial Position Sitting Pulse 73 Pulse Source Pulse Oximeter Pulse Oximetry (%) 97 Oxygen Delivery Method Room Air Intake Visit Reasons: PE Intake Note: Pt is here today for PE. Allergies No Known Allergies Allergy (Unknown, Verified 04/23/23 02:10) UNK Medication List - Last Reconciled 04/23/23 by Vicenta Ornelas MD albuterol sulfate 90 mcg/actuation 2 puffs inhalation Q6H PRN clobetasol 0.05% 1 appl topical BID 2 weeks clobetasol 0.05% 1 appl topical BEDTIME 10 days hydroxyzine HCl 25 mg PO BEDTIME PRN Tobacco use date assessed: 03/19/23 Dental Screening Dental Screen Date: 04/20/23 Did you have a dental visit in the last 12 months?: Yes Did you have a dental problem in the last 6 months where you did not have access to dental care?: No Was dental information given to patient?: Patient has dentist HPI PE HPI Details 52-year-old lady here today for physical exam. She is up-to-date with her screening mammogram and cervical cancer screening, goes to [facility]. Complains of recurrent rash and lesions on the back of her scalp, which is very itchy. Has been having occasional urea Chava incontinence usually when she exercises or even when she holds her urine for a long time. Denies any accompanying back pain, no dysuria. She has been following a healthy diet, eats a lot of greens and fish, no junk food, and has been exercising regularly [facility] Medical History (Updated 04/23/23 @ 02:16 by Vicenta Ornelas MD) Urinary incontinence in female Urticaria Dense breast tissue on mammogram Generalized anxiety disorder Acute urticaria Uterine fibroid Fatigue Annual visit for general adult medical examination with abnormal findings Family history of breast cancer in mother History of umbilical hernia Surgical History Hx of section Family History Father Hx of diabetes mellitus Mother HX: breast cancer Paternal Grandfather Colon cancer Social History Household Members: Spouse and Children Housing: House Alcohol intake: current Patient Tobacco Use Status: Never used Tobacco e-Cigarette/Vaping Use: Never Used service: No Current occupational status: employed Sexual orientation: Straight/Heterosexual Gender identity: Female Cognitive needs: No Hearing needs: No Vision needs: Yes Female Reproductive History Menstrual Age of Menarche: 17 Questionnaire PHQ-9 Over the last 2 weeks, how often have you been bothered by any of the following problems? Depression Screening Interpretation: Negative Depression Screening Done: Yes Source: Developed by Drs. Mohamud March, Anuja Cornejo, Diego Dai and colleagues, with an educational amanda from [employer]. Thrive Questionnaire Date Thrive assessed: 03/19/23 KENN-7 AMB Questionnaire KENN-7 Date KENN - 7 assessed: 03/19/23 Source: Developed by Drs. Mohamud March, Anuja Cornejo, Diego Dai and colleagues, with an educational amanda from [employer]. Physical exam (Primary Care) Vital Signs: Last Vital Signs Pulse 73 04/20/23 12:56 BP 104/66 04/20/23 12:56 Pulse Ox 97 04/20/23 12:56 Oxygen Delivery Method Room Air 04/20/23 12:56 BMI result Body Mass Index 22.2 Tobacco/Smoking Status: Tobacco use Status Tobacco use date assessed 03/19/23 04/20/23 12:57 Patient Tobacco Use Status Never used Tobacco 04/20/23 12:57 e-Cigarette/Vaping Use Never Used 04/20/23 12:57 Depression Screening Interpretation: Negative Thrive Assessment: Date of Thrive Assessment Date Thrive assessed 03/19/23 04/20/23 12:57 Const General: no acute distress and alert Nutritional Appearance: average body habitus Orientation/consciousness: patient oriented x3 HENMT Head: Yes normocephalic Ears: external ears normal General nose exam: Normal external nose present Face and sinus: Yes face symmetric Mouth: Normal oral and palatal mucosa present and moist mucous membranes Eyes General: appearance normal, both eyes and all related structures Eyelids: Yes eyelids normal Conjunctivae: conjunctivae normal Sclerae: sclerae normal Pupils: Equal, round and reactive pupils present EOM: EOMs intact bilaterally Neck Neck: Yes full ROM, Yes no lymphadenopathy and Yes supple Thyroid: Thyroid normal Chest Chest palpation & inspection: normal inspection of the chest Breast/axilla palpation: normal palpation of the breasts and normal palpation of the axillae Resp Effort & Inspection: normal respiratory effort and able to speak in complete sentences Auscultation: clear to auscultation bilaterally Cardio Rate: regular rate Rhythm: regular rhythm Heart sounds: S1 normal heart sound present and S2 normal heart sound present GI Other: mild diastasis recti Palpation (GI): Soft to palpation, nontender, no guarding and no masses Auscultation: normal bowel sounds General: Yes no CVA tenderness Back/Spine/Pelvis Back: no CVA tenderness and No back tenderness Skin General skin exam: no rashes or lesions noted Neuro General: patient oriented x3, gait normal, moves all extremities, Normal light touch and pain sensation, no focal motor deficits and CN's II-XI intact bilaterally Cranial nerves: Yes Equal, round and reactive pupils present Cognition (Neuro): normal cognition Gait exam (Neuro): Normal gait present Motor exam (neuro): 5/5 motor strength present throughout Extrem General: Yes normal to inspection, Yes full ROM, Yes no joint enlargement, Yes no pedal edema and Yes normal gait Psych Appearance: grossly normal and well kempt Mental Status: mental status grossly normal Speech and movement: Normal speech and movement present Affect: normal affect Attitude: cooperative Thought process: Normal thought process present Thought content: Normal thought content present Results Reviewed Results Reviewed: Laboratory Tests 04/17/23 07:50 WBC 4.9 Hgb 14.6 Hct 42.2 Plt Count 163 RUN: 04/23/23221 PAGE 1 [facility] [address] [place] [id number] Desktop Support Specialist: Stalin Sutherland M.D. Specimen Inquiry Name: Janna Woodward Age/Sex: 52/F : 1970 Unit#: [id number] Attend Dr: Vicenta Ornelas MD Re04/17/23 Status: DEP REF Location: [facility] Disch: SPEC : [id number] ARVIN: 04/17/23-075 STATUS: COMP REQ : [id number] RECD: 04/17/23-[address]: Vicenta Ornelas MD COMP: 04/17/23-1143 ENTERED: 04/17/23-[address] [facility] [address]: ORDERED: CMP Fast, Lipid Panel, Vitamin D 25-OH, TSH Rflx Test Result Flag Reference Sodium 141 135-145 mmol/L Potassium 4.3 3.3-5.1 mmol/L CL 106 96-108 mmol/L CO2 29 22-29 mmol/L Gap 10 L 12-20 BUN 23 H 9-16 mg/dL Creat 0.81 0.5-1.4 mg/dL EGFR > 60 NOTE: For -[place] individuals, multiply the result by 1.210. Chronic Kidney Disease: Estimated GFR < 60 mL/min/1.73m2 Severe Kidney Disease: Estimated GFR < 15 mL/min/1.73m2 FBS 83 60-99 mg/dL CA 9.6 # 8.4-10.2 mg/dL Total Bili 0.7 0.0-1.0 mg/dL AST (GOT) 25 5-31 U/L ALT (GPT) 21 0-31 U/L Protein, Total 7.2 6.5-8.0 g/dL Alb 4.3 3.5-5.0 g/dL Triglyceride 72 <150 mg/dL Desirable Triglyceride: less than 150 mg/dL Borderline High Triglyceride 150-199 mg/dL High Triglyceride: 200-499 mg/dL Very High Triglyceride: greater than or equal to 5OO mg/dL Cholesterol 156 <200 mg/dL Desirable Cholesterol: less than 200 mg/dL Borderline High Cholesterol: 200-239 mg/dL High Cholesterol: greater than 239 mg/dL LDL Calculated 92 <100 mg/dL Desirable LDL: less than 100 mg/dL Near Optimal/Above Optimal LDL: 110-129 mg/dL Borderline High LDL: 130-159 mg/dL High LDL: 160-189 mg/dL Very High LDL: greater than or equal to 190 mg/dL HDL 50 >40 mg/dL Desirable HDL: greater than 40 mg/dL Note: This HDL assay may give artificially low results in patients with liver disease. Alk Phos 52 39-117 U/L Vit D 25-OH Tot 99.1 >30 ng/mL Health Based Reference Values* < 20 ng/mL Deficient 20-30 ng/mL Insufficient > 30 ng/mL Sufficient *Raymundo CALDWELL. N Engl J Med. 2007;[id number]:266-280 Care must be taken in interpreting Vitamin D results from different laboratories and methodologies. Published data demonstrated that results from patients undergoing hemodialysis may show a negative bias when tested with various automated 25-OH vitamin D assays when compared to LC-MS/MS. When testing samples from patients whose predominant form of Vitamin D is Vitamin D2, such as patients receiving Vitamin D2 supplementation, results that are subtherapeutic should be confirmed with another method such as LC-MS/MS. TSH 2.11 0.32-4.0 uIU/mL Assessment and Plan Assessment & Plan (1) Annual visit for general adult medical examination with abnormal findings: Code(s): Z00.01 - Encounter for general adult medical examination with abnormal findings Plan: Will check appropriate labs. Recommended dental visit every 6 months and regular eye exams, at least every 2 years. Take adequate calcium in diet and vitamin-D 3 at 2000 IU per cap once a day, in addition to weight-bearing exercises to help maintain good muscle tone and weight control. Instructed to do self-breast exam, has an appointment already for her screening mammogram 06/15/2023 and ordered bilateral breast ultrasound to be done at the same time due to presence of dense breasts as noted on mammogram . Does not want to get COVID vaccinations anymore, up-to-date with her flu shot and pneumonia vaccine, as well as Tdap. Reminded to get her shingles vaccine. Patient also reminded that she is overdue for colon cancer screening, does not want to be referred for 1 at present time (2) Skin cancer screening: Code(s): Z12.83 - Encounter for screening for malignant neoplasm of skin Plan: Referred to [facility] for skin cancer screening and evaluation recurrent itching of scalp (3) Pruritic dermatosis of scalp: Code(s): L29.8 - Other pruritus Plan: Prescription sent for clobetasol 0.05% topical solution, to be massaged once a day for no more than 10 days at a time to affected area on scalp (4) Dense breast tissue on mammogram: Code(s): R92.30 - Dense breasts, unspecified Plan: Ordered bilateral ultrasound to be done together with screening mammogram later this year (5) Generalized anxiety disorder: Code(s): F41.1 - Generalized anxiety disorder Plan: Takes hydroxyzine as needed (6) Urticaria: Code(s): L50.9 - Urticaria, unspecified Plan: Takes hydroxyzine as needed and has clobetasol 0.0 5% cream which she applies to affected areas as needed. Dermatology consult ordered (7) Urinary incontinence in female: Code(s): R32 - Unspecified urinary incontinence Plan: Will do a trial of OxybutyninER 5 mg once a day Orders: Orders US breast RT complete 04/20/23 R92.30 - Dense breasts, unspecified US breast LT complete 04/20/23 R92.30 - Dense breasts, unspecified Referrals Dermatology Referral L29.8 - Other pruritus, L50.9 - Urticaria, unspecified, Z12.83 - Encounter for screening for malignant neoplasm of skin Medications: New oxybutynin chloride ER 5 mg PO DAILY 30 tabs 0RF clobetasol 0.05% 1 appl topical BEDTIME 10 days 50 mL 0RF Coding Level of Care Code Est Pt Prev Care 40-64y(29563) Diagnoses Annual visit for general adult medical examination with abnormal findings Z00.01 Skin cancer screening Z12.83 Pruritic dermatosis of scalp L29.8 Dense breast tissue on mammogram R92.30 Generalized anxiety disorder F41.1 Urticaria L50.9 Urinary incontinence in female R32
[2023-04-20 12:56] VITALS: BP 104/66; PULSE 73; O2SAT 97; BMI 22.2
== END 2023-04-20 13:39 | disposition home or self-care (01) ==
PROVIDERS: PCP Internal Medicine; Visit Provider Internal Medicine
DX: Z00.01 Encounter for general adult medical examination with abnormal findings (principal); Z12.83 Encounter for screening for malignant neoplasm of skin; L29.8 Other pruritus; R92.30 Dense breasts, unspecified; F41.1 Generalized anxiety disorder; L50.9 Urticaria, unspecified; R32 Unspecified urinary incontinence
CPT/HCPCS: 99213; 99396

== ENCOUNTER 2023-08-17 07:16 | Outpatient (REF) | payer OTHER, SELFPAY ==
--- NOTE | ~2023-08-17 | MM_ITS ---
EXAMINATION: MM SCREENING DIGITAL BREAST TOMOSYNTHESIS, BILATERAL CLINICAL INFORMATION: Screening. Asymptomatic. COMPARISON: Mammography: This study is compared with prior exams dating back to 2019. TECHNIQUE: Digital breast tomosynthesis is performed in both the craniocaudal and mediolateral oblique views along with computer-aided detection (CAD). Synthesized 2D images are generated from the tomosynthesis. FINDINGS: The breasts are heterogeneously dense, which may obscure small masses (ACR BI-RADS breast composition Category c). There are no suspicious calcifications or areas of architectural distortion in either breast. There is a known, benign mass in the superior aspect of the left breast which was shown to represent a benign cyst on an ultrasound from 07/30/2020. This does appear mammographically large are however. Since this is the case, additional mammographic and targeted sonographic imaging of this finding is advised. Additional, in the deep third of the superior aspect of the left breast, there is an asymmetry which lies posterior to the larger mass. Additional mammographic and targeted sonographic imaging of this finding is also advised. There is also an asymmetry in the deep third of the superior aspect of the right breast which warrants additional mammographic and targeted sonographic imaging. The right MLO view should be repeated with tomosynthesis due to motion degradation of the original image. The CC view of the right breast should also be repeated to include more breast tissue. MM/MM tomosynthesis screening BI IMPRESSION: Focal asymmetry of the left breast and asymmetry of the left breast as well as asymmetry of the right breast warrant additional mammographic imaging. The right MLO and right CC views should be repeated as described above. ASSESSMENT: BI-RADS BI-RADS 0 - Incomplete: Needs additional Imaging. RECOMMENDATION: 1. Additional views of both breasts. 2. Targeted ultrasound advised. 3. Radiology department staff will contact the patient for additional imaging. Additional Imaging required This examination should not preclude the clinical evaluation of a suspicious palpable abnormality. This patient's information was entered into a reminder system with a target due date for their next mammogram.
== END 2023-08-17 07:17 | disposition home or self-care (01) ==
LOC: HO.MAMMO 07:16
PROVIDERS: PCP Internal Medicine; Visit Provider Internal Medicine
DX: Z12.31 Encounter for screening mammogram for malignant neoplasm of breast (principal)
CPT/HCPCS: 77063; 77067

== ENCOUNTER → 2023-08-17 07:30 | Outpatient (BNV) | payer OTHER, SELFPAY | PROVIDERS: PCP Internal Medicine; Visit Provider Radiology Diagnostic Radiology | DX: Z12.31 Encounter for screening mammogram for malignant neoplasm of breast (principal) | CPT/HCPCS: 77063; 77067 ==

== ENCOUNTER 2023-10-04 08:22 | Outpatient (AMB) | payer OTHER, SELFPAY ==
--- NOTE | 2023-10-04 08:33 | MHC.OFFWIV ---
Intake Vital Signs 10/04/23 08:34 Weight 138 lb BP 110/78 Blood Pressure Location Rt brachial Position Sitting Pulse 64 Pulse Source Pulse Oximeter Pulse Oximetry (%) 98 Oxygen Delivery Method Room Air Intake Visit Reasons: Both ear impacted hearing Intake Note: Patient here for bilat ear blocked for about 3 weeks. Patient Tobacco Use Status: Never used Tobacco Allergies No Known Allergies Allergy (Unknown, Verified 10/04/23 08:34) UNK Do you need a note to return to daycare/school/sports/work: No HPI Both ear impacted hearing HPI Details This note is constructed using voice recognition software. While every effort has been made to ensure accuracy, resaw carriage operator errors may have been included. The patient is a 53 year old female who presents to the clinic today with bilateral ears with muffled hearing. She denies fever, chills, cough, shortness of breath, pain, or any other viral illness symptoms. Notes that this symptom onset was about 3 weeks ago when she was flying in a plane, and it has not seemed to get better. She has not tried anything to resolve it. It seems to be worse in the morning and improves throughout the day. Nothing seems to make it worse. [facility] Medical History (Updated 04/23/23 @ 02:16 by Vicenta Ornelas MD) Urinary incontinence in female Urticaria Dense breast tissue on mammogram Generalized anxiety disorder Acute urticaria Uterine fibroid Fatigue Annual visit for general adult medical examination with abnormal findings Family history of breast cancer in mother History of umbilical hernia Surgical History Hx of section Family History Father Hx of diabetes mellitus Mother HX: breast cancer Paternal Grandfather Colon cancer Social History Household Members: Spouse and Children Housing: House Alcohol intake: current Patient Tobacco Use Status: Never used Tobacco e-Cigarette/Vaping Use: Never Used service: No Current occupational status: employed Sexual orientation: Straight/Heterosexual Gender identity: Female Cognitive needs: No Hearing needs: No Vision needs: Yes Female Reproductive History Menstrual Age of Menarche: 17 Review of Systems Const All systems reviewed & are unremarkable except as noted in HPI and below Physical Exam Vital Signs: Last Vital Signs Pulse 64 10/04/23 08:34 BP 110/78 10/04/23 08:34 Pulse Ox 98 10/04/23 08:34 Oxygen Delivery Method Room Air 10/04/23 08:34 Const General: cooperative, healthy appearing, comfortable and no acute distress Orientation/consciousness: patient oriented x3 Limitations: no limitations HEENT Head: Yes normal to inspection Ears: hearing grossly normal bilaterally, external ears normal and TM abnormal retracted General nose exam: Normal external nose present, No nasal discharge present and Abnormal mucous membranes and turbinates present boggy and pale Face and sinus: Yes normal facial exam and Yes sinuses nontender Mouth: Normal oral and palatal mucosa present and moist mucous membranes Throat: Yes tonsils normal, Yes uvula midline, Yes posterior oropharynx abnormal (Erythema), Yes postnasal drainage and Yes cobblestoning Eyes General: appearance normal, both eyes and all related structures Neck Neck: Yes normal visual inspection Resp Effort & Inspection: normal respiratory effort, able to speak in complete sentences, Actively coughing, no respiratory distress, not tachypneic, no tripod positioning and no use of accessory muscles Auscultation: clear to auscultation bilaterally Cardio Rate: regular rate Rhythm: regular rhythm Heart sounds: normal S1 and S2 Skin General skin exam: no rashes or lesions noted Neuro General: patient oriented x3 Extrem General: Yes normal to inspection and Yes no clubbing, cyanosis or edema Assessment & Plan Assessment & Plan (1) Allergic rhinitis: Code(s): J30.9 - Allergic rhinitis, unspecified Qualifiers: Allergic rhinitis trigger: unspecified Allergic rhinitis seasonality: unspecified Qualified Code(s): J30.9 - Allergic rhinitis, unspecified Plan: Supportive measures encouraged and reviewed including use of Flonase nasal spray for symptomatic management. Advised consideration [id number] allergy pills such as Zyrtec, Claritin, or Aleshia if symptoms persist she may wish to continue this detention. Discussed with patient likelihood that her allergies have contributed to her muffled hearing based on physical examination. Advised patient to follow up with primary care provider should symptoms persist. Plan See above for full details and plan. Coding Level of Care Code Est Pt Level 3 (50479) Diagnoses Allergic rhinitis, unspecified seasonality, unspecified trigger J30.9 Allergic rhinitis trigger: unspecified Allergic rhinitis seasonality: unspecified
[2023-10-04 08:34] VITALS: BP 110/78; PULSE 64; O2SAT 98
== END 2023-10-04 09:08 | disposition home or self-care (01) ==
PROVIDERS: PCP Internal Medicine; Visit Provider Registered Nurse
DX: J30.9 Allergic rhinitis, unspecified (principal)
CPT/HCPCS: 99213

== ENCOUNTER 2023-10-23 12:54 | Outpatient (REF) | payer OTHER, SELFPAY ==
--- NOTE | ~2023-10-23 | US_ITS ---
EXAMINATION: MM DIAGNOSTIC DIGITAL BREAST TOMOSYNTHESIS, BILATERAL US BREAST LIMITED, BILATERAL MAMMOGRAPHY: CLINICAL INFORMATION: Callback from screening for bilateral asymmetries . Patient with known bilateral cysts and fibrocystic changes in both breasts. COMPARISON: Mammography: 08/17/2023, 08/14/2022, 08/10/2021, 07/30/2020 with bilateral breast ultrasound, 08/02/2019 with bilateral breast ultrasound. TECHNIQUE: Digital breast tomosynthesis is performed in the following views: Full field 3-D digital right CC view, 4 field 3-D digital right MLO view, and 3-D Spot compression left CC view and left MLO views x2. Computer-aided diagnosis was used for this study. Per technologist, the patient has extremely small breasts, and attempts at obtaining more tissue on the right CC view, is very limited. FINDINGS: The breasts are extremely dense, which lowers the sensitivity of mammography (ACR BI-RADS breast composition Category d). There are 2 oval circumscribed masses in the right breast at the approximate 10:00 and 1:00 axes, presumably cysts. These will be evaluated with ultrasound. In the left breast, there is a large circumscribed oval mass versus 2 immediately abutting masses upper central breast, with a small more posterior circumscribed mass at the approximate 10:00 axis. These will be evaluated with ultrasound. No additional abnormalities detected. No skin or axillary abnormality. ULTRASOUND: CLINICAL INFORMATION: As above. COMPARISON: Bilateral breast ultrasound 08/02/2019 and 07/30/2020. TECHNIQUE: Targeted sonographic evaluation bilateral breasts was performed using a high frequency linear transducer. Attention was given to the large masses left greater than in all 4 quadrants of both breasts. Selected archived documentation. FINDINGS: RIGHT BREAST: At the 1:00 axis, 8 cm from the nipple, there is a 1.0 x 1.0 x 0.9 cm simple cyst. Immediately adjacent laterally is a 1:00 axis, 7 cm from the nipple simple cyst measuring 2.2 x 0.9 x 2.0 cm. Additional small simple cysts are seen at the 5:00 axis, 3 cm from the nipple. Findings correlate with the mammographic abnormalities. LEFT BREAST: At the 12:00 axis, 2 cm from nipple, there is an elongated simple cyst measuring an estimated 4.7 x 1.3 x 6.3 cm, correlating with the dominant left mammographic mass. At the 10:00 axis, 4 cm from nipple, there is a 6 x 6 x 6 mm oval minimally complicated cyst, correlating with the posterior mammographic mass. These are both benign. US/US breast BI limited mamm only IMPRESSION: -There are no findings suspicious for malignancy in either breast. -Bilateral breast masses correlate with large cysts in both breasts as before. Findings are benign. -Recommend the patient resume annual screening. OVERALL ASSESSMENT: Mammography: BI-RADS 2 - Benign Findings Ultrasound: BI-RADS 2 - Benign Findings RECOMMENDATION: 1 year F/U This patient's information was entered into a reminder system with a target due date for their next mammogram. Electronically signed by: Chemo Foy MD 10/23/2023 02:33 PM EDT
== END 2023-10-23 12:55 | disposition home or self-care (01) ==
LOC: HO.MAMMO 12:54
PROVIDERS: PCP Internal Medicine; Visit Provider Internal Medicine
DX: N64.89 Other specified disorders of breast (principal)
CPT/HCPCS: 76642; 77062; 77066

== ENCOUNTER → 2023-10-23 13:30 | Outpatient (BNV) | payer OTHER, SELFPAY | PROVIDERS: PCP Internal Medicine; Visit Provider Radiology Diagnostic Radiology | DX: R92.8 Other abnormal and inconclusive findings on diagnostic imaging of breast (principal) | CPT/HCPCS: 76642; 77062; 77066 ==

== ENCOUNTER 2023-11-19 13:43 | Outpatient (AMB) | payer OTHER, SELFPAY ==
--- NOTE | 2023-11-19 14:14 | A.OFFPC_ITS ---
Vital Signs 11/19/23 14:16 Height 5 ft 7 in Weight 141 lb BMI 22.1 BP 102/64 Blood Pressure Location Rt brachial Position Sitting Pulse 64 Pulse Source Pulse Oximeter Pulse Oximetry (%) 96 Oxygen Delivery Method Room Air Intake Visit Reasons: Urinary tract infection Intake Note: Pt is here today c/o lower back pain. urgency and vaginal pressure [id number] Allergies No Known Allergies Allergy (Unknown, Verified 11/19/23 16:10) UNK Medication List - Last Reconciled 11/19/23 by Vicenta Ornelas MD albuterol sulfate 90 mcg/actuation 2 puffs inhalation Q6H PRN Tobacco use date assessed: 11/19/23 Dental Screening Dental Screen Date: 11/19/23 Did you have a dental visit in the last 12 months?: Yes Did you have a dental problem in the last 6 months where you did not have access to dental care?: No Was dental information given to patient?: Patient has dentist HPI Urinary tract infection HPI Details 53 year old lady complaining of ill-defi kaleigh lower back pain. urgency and vaginal pressure [id number]. Denies any accompanying dysuria, no urinary frequency or urgency, no incontinence., no fever. She also states that she has not been feeling well for the last several months now, feels tired, aching all over especially her legs at night when she is sleeping. Please do not thinks that she might be going through the change, last menstrual period was in May this year. He is also complaining of blocked ears, comes and goes last several weeks now, denies any pain or discharge. [facility] Medical History (Updated 11/19/23 @ 16:29 by Vicenta Ornelas MD) Pressure sensation in both ears Urinary incontinence in female Dense breast tissue on mammogram Generalized anxiety disorder Acute urticaria Uterine fibroid Fatigue Annual visit for general adult medical examination with abnormal findings Family history of breast cancer in mother History of umbilical hernia Surgical History Hx of section Family History Father Hx of diabetes mellitus Mother HX: breast cancer Paternal Grandfather Colon cancer Social History Household Members: Spouse and Children Housing: House Alcohol intake: current Patient Tobacco Use Status: Never used Tobacco e-Cigarette/Vaping Use: Never Used service: No Current occupational status: employed Sexual orientation: Straight/Heterosexual Gender identity: Female Cognitive needs: No Hearing needs: No Vision needs: Yes Female Reproductive History Menstrual Age of Menarche: 17 Date of last menstrual period: 05/21/23 Other: Goes to [facility] for her routine Pap and pelvic exam Questionnaire PHQ-9 Over the last 2 weeks, how often have you been bothered by any of the following problems? 1. Little interest or pleasure in doing things: not at all 2. Feeling down, depressed, or hopeless: not at all 3. Trouble falling or staying asleep, or sleeping too much: not at all 4. Feeling tired or having little energy: not at all 5. Poor appetite or overeating: not at all 6. Feeling bad about yourself - or that you are a failure or have let yourself or your family down: not at all 7. Trouble concentrating on things, such as reading the newspaper or watching television: not at all 8. Moving or speaking so slowly that other people could have noticed. Or the opposite - being so fidgety or restless that you have been moving around a lot more than usual: not at all 9. Thoughts that you would be better off or of hurting yourself in some way: not at all Total score: 0 Depression Screening Interpretation: Negative Depression Screening Done: Yes 32367 - PHQ-9 Billing: Yes Source: Developed by Drs. Mohamud March, Anuja Cornejo, Diego Dai and colleagues, with an educational amanda from [employer]. Thrive Questionnaire Date Thrive assessed: 11/19/23 I am a: Patient What is your living situation today?: I have a steady place to live Within the past 12 months, did the food you bought not last and you didn't have the money to get more?: Never true Within the past 12 months, did you worry whether your food would run out before you got money to buy more?: Never true Do you have trouble paying for medicines?: No Do you have trouble getting transportation to medical appointments?: No Do you have trouble paying your heating and electricity bill?: No Do you have trouble taking care of your child, family member or friend?: No Do you have trouble with day-to-day activities such as bathing, preparing meals, shopping, managing finances, etc.?: No Are you interested in more education?: No Please select the resources that you would like help with: None Currently or been in a relationship where the following occur: No concerns reported THRIVE Score: 0 AUDIT C Alcohol Use Questionnaire (AUDIT-C) 1. How often do you have a drink containing alcohol?: Never Total Score: 0 KENN-7 AMB Questionnaire KENN-7 Date KENN - 7 assessed: 11/19/23 Feeling nervous, anxious, or on edge: 0 = Not at all Not being able to stop or control worryin = Not at all Worrying too much about different things: 0 = Not at all Trouble relaxin = Not at all Being so restless that it is hard to sit still: 0 = Not at all Becoming easily annoyed or irritable: 0 = Not at all Feeling afraid as if something awful might happen: 0 = Not at all Total KENN-7 score (0-4 normal; 5-9 mild; 10-14 moderate; 15-21 severe): 0 Source: Developed by Drs. Mohamud March, Anuja Cornejo, Diego Dai and colleagues, with an educational amanda from [employer]. KENN-7 Assessment Billing KENN-7 Assessment Tool: KENN-7 Assessment 71725 Review of Systems Const All systems reviewed & are unremarkable except as noted in HPI and below Reports headache(s) ENT Reports as per HPI, Reports Normal hearing present, Denies dizziness, Denies ear discharge, Denies otalgia, Reports headache(s), Denies nose pain, Denies disequilibrium, Denies post nasal drip, Denies tinnitus, Denies sinus pain and Denies sinus pressure Card Reports no additional complaints Resp Reports no additional complaints GI Reports bloating and Denies change in bowel habits Reports as per HPI Neuro Reports Normal hearing present, Denies dizziness, Reports headache(s) and Denies disequilibrium Physical exam (Primary Care) Vital Signs: Last Vital Signs Pulse 64 11/19/23 14:16 BP 102/64 11/19/23 14:16 Pulse Ox 96 11/19/23 14:16 Oxygen Delivery Method Room Air 11/19/23 14:16 BMI result Body Mass Index 22.1 Tobacco/Smoking Status: Tobacco use Status Tobacco use date assessed 11/19/23 11/19/23 14:17 Patient Tobacco Use Status Never used Tobacco 11/19/23 14:14 e-Cigarette/Vaping Use Never Used 11/19/23 14:14 PHQ-9: PHQ-9 Score PHQ-9: Total score 0 11/19/23 16:15 Depression Screening Interpretation: Negative Thrive Assessment: Date of Thrive Assessment Date Thrive assessed 11/19/23 11/19/23 14:17 Currently or been in a relationship where the following occur: No concerns reported Const General: no acute distress and alert Nutritional Appearance: average body habitus Orientation/consciousness: patient oriented x3 HENMT Head: Yes normocephalic Ears: hearing grossly normal bilaterally, external ears normal, TM's normal bilaterally and EAC's normal General nose exam: Normal external nose present Face and sinus: Yes face symmetric and No sinus tenderness Mouth: Normal oral and palatal mucosa present and moist mucous membranes Eyes General: appearance normal, both eyes and all related structures Eyelids: Yes eyelids normal Conjunctivae: conjunctivae normal Sclerae: sclerae normal Pupils: Equal, round and reactive pupils present EOM: EOMs intact bilaterally Neck Neck: Yes full ROM, Yes no lymphadenopathy and Yes supple Thyroid: Thyroid normal Resp Effort & Inspection: normal respiratory effort and able to speak in complete se ntences Auscultation: clear to auscultation bilaterally Cardio Rate: regular rate Rhythm: regular rhythm Heart sounds: S1 normal heart sound present and S2 normal heart sound present GI Other: mild diastasis recti Palpation (GI): Soft to palpation, nontender, no guarding and no masses Percussion: Yes tympanic to percussion Auscultation: normal bowel sounds General: Yes no CVA tenderness Back/Spine/Pelvis Back: no CVA tenderness and No back tenderness Skin General skin exam: no rashes or lesions noted Neuro General: patient oriented x3, gait normal, moves all extremities, Normal light touch and pain sensation, no focal motor deficits and CN's II-XI intact bilaterally Cranial nerves: Yes Equal, round and reactive pupils present and Yes Normal hearing present Cognition (Neuro): normal cognition Gait exam (Neuro): Normal gait present Motor exam (neuro): 5/5 motor strength present throughout Extrem General: Yes normal to inspection, Yes full ROM, Yes no joint enlargement, Yes no pedal edema and Yes normal gait Results AMB Urinalysis, Automated UA Leukoctes 0 Aamir/uL Last Edit by Janina Hernandez CMA on 11/19/23 14:16 UA Nitrite Negative Last Edit by Janina Hernandez, YASHIRA on 11/19/23 14:16 UA Urobilinogen 0.2 mg/dL Last Edit by Janina Hernandez CMA on 11/19/23 14:16 UA Protein 0 mg/dL Last Edit by Janina Hernandez, YASHIRA on 11/19/23 14:16 UA pH 6.0 Last Edit by Janina Hernandez, YASHIRA on 11/19/23 14:16 UA Blood 0 Khari/uL Last Edit by Janina Hernandez, YASHIRA on 11/19/23 14:16 UA Specific Hendley 1.015 Last Edit by Janina Hernandez CMA on 11/19/23 14:16 UA Ketone Negative Last Edit by Janina Hernandez CMA on 11/19/23 14:16 UA Bilirubin 0 mg/dL Last Edit by Janina Hernandez, FIRE RANGER on 11/19/23 14:16 UA Glucose 0 mg/dL Last Edit by Janina Hernandez CMA on 11/19/23 14:16 Results Reviewed Results Reviewed: Laboratory Last Values Urine pH (Auto) 6.0 11/19/23 14:14 Specific [place] (Auto) 1.015 11/19/23 14:14 Urine Protein (Auto) 0 mg/dL 11/19/23 14:14 Glucose (UA)(Auto) 0 mg/dL 11/19/23 14:14 Urine Ketones (Auto) Negative 11/19/23 14:14 Urine Blood (Auto) 0 Khari/uL 11/19/23 14:14 Urine Nitrite (Auto) Negative 11/19/23 14:14 Urine Bilirubin (Auto) 0 mg/dL 11/19/23 14:14 Urine Urobilinogen (Auto) 0.2 mg/dL 11/19/23 14:14 Leukocyte Esterase (Auto) 0 Aamir/uL 11/19/23 14:14 Assessment and Plan Assessment & Plan (1) Fatigue: Code(s): R53.83 - Other fatigue Qualifiers: Fatigue type: chronic, unspecified Qualified Code(s): R53.82 - Chronic fatigue, unspecified Plan: Will order CBC, vitamin-D, TSH with free T4, vitamin B12 and vitamin-D level (2) Aching leg syndrome: Code(s): M79.606 - Pain in leg, unspecified (3) Missed period: Code(s): N92.6 - Irregular menstruation, unspecified Plan: Ordered serum quantitative hCG (4) Bilateral lower abdominal discomfort: Code(s): R10.31 - Right lower quadrant pain; R10.32 - Left lower quadrant pain Plan: Urine dipstick came back with unremarkable findings. Patient with known uterine fibroids, last checked in 2020, advised to follow-up with her OBGYN for evaluation of her fibroid tumors (5) Pressure sensation in both ears: Code(s): H93.8X3 - Other specified disorders of ear, bilateral Plan: Can be eustachian tube dysfunction, advised to try taking Aleshia D 12 hour tablet once in a.m. for at least 5 days to see if this affords any relief. Orders: Orders AMB Urinalysis Automated Today Z13.9 - Encounter for screening, unspecified Vitamin D 25-OH Total Today M79.606 - Pain in leg, unspecified, R53.82 - Chronic fatigue, unspecified Erythrocyte Sedimentation Rate Today M79.606 - Pain in leg, unspecified, R53.82 - Chronic fatigue, unspecified CRP High Sensitivity Today M79.606 - Pain in leg, unspecified, R53.82 - Chronic fatigue, unspecified Complete Blood Count Auto Diff Today M79.606 - Pain in leg, unspecified, R53.82 - Chronic fatigue, unspecified TSH reflex Free T4 Today M79.606 - Pain in leg, unspecified, R53.82 - Chronic fatigue, unspecified Vitamin B12 and Folate Today M79.606 - Pain in leg, unspecified, R53.82 - Chronic fatigue, unspecified HCG Quantitative Today N92.6 - Irregular menstruation, unspecified Coding Level of Care Code Est Pt Level 4 (45133) Diagnoses Chronic fatigue R53.82 Fatigue type: chronic, unspecified Aching leg syndrome M79.606 Missed period N92.6 Bilateral lower abdominal discomfort R10.31; R10.32 Pressure sensation in both ears H93.8X3 Additional Codes KENN-7 Assessment Billing - KENN-7 Assessment Tool: KENN-7 Assessment 70315 ([id number])
[2023-11-19 14:16] VITALS: BP 102/64; PULSE 64; O2SAT 96; BMI 22.1
== END 2023-11-19 16:25 | disposition home or self-care (01) ==
PROVIDERS: PCP Internal Medicine; Visit Provider Internal Medicine
DX: R53.82 Chronic fatigue, unspecified (principal); M79.606 Pain in leg, unspecified; N92.6 Irregular menstruation, unspecified; R10.31 Right lower quadrant pain; R10.32 Left lower quadrant pain; H93.8X3 Other specified disorders of ear, bilateral; Z13.9 Encounter for screening, unspecified

== ENCOUNTER → 2023-11-19 13:43 | Outpatient (BNVA) | payer OTHER, SELFPAY | PROVIDERS: PCP Internal Medicine; Visit Provider Internal Medicine ==

== ENCOUNTER 2023-11-19 14:53 | Outpatient (REF) | payer OTHER, SELFPAY ==
[2023-11-19 16:18] LABS: MANUAL DIFF FLAG NO
[2023-11-19 16:56] LABS: Basophils Absolute Auto 0.1 X10*3/uL (0.0-0.2); Basophils Percent Auto 0.7 % (0-2); Eosinophils Percent Auto 11.2 % (0-4); Hematocrit 42.3 % (37.0-47.0); Hemoglobin 14.8 g/dl (12.0-16.0); Imm Gran Abs Auto 0.02 X10*3/uL (0.00-0.03); Imm Gran Pct Auto 0.2 % (0.0-0.4); Lymphocytes Absolute Auto 1.8 X10*3/uL (1.2-4.9); Lymphocytes Percent Auto 20.6 % (20-40); Mean Corpuscular Hemoglobin 30.8 pg (27.0-33.0); Mean Corpuscular Volume 88.1 fL (80.0-98.0); Mean Platelet Volume 10.5 fL (9.4-12.3); Monocytes Absolute Auto 0.5 X10*3/uL (0.1-1.2); Monocytes Percent Auto 6.4 % (2-11); Neutrophils Absolute Auto 5.2 x10*3/uL (2.0-8.3); Neutrophils Percent Auto 60.9 % (45-73); Platelet Count 172 X10*3/uL (160-400); Red Cell Distribution Width 12.1 % (11.0-16.0); White Blood Count 8.5 X10*3/uL (4.8-10.8)
[2023-11-19 17:15] LABS: HCG Quantitative < 2 mIU/mL
[2023-11-19 17:26] LABS: TSH reflex Free T4 1.93 uIU/mL (0.32-4.0); Vitamin D 25-OH Total 96.8 ng/mL (>30)
[2023-11-19 17:41] LABS: Folate 8.4 ng/mL (> or = 4.0); Vitamin B12 1450 pg/mL (200-900)
[2023-11-19 19:27] LABS: Erythrocyte Sedimentation Rate 7 MM/HR (0-20)
[2023-11-20 16:39] LABS: CRP High Sensitivity 0.4 mg/L
== END 2023-11-19 14:54 | disposition home or self-care (01) ==
LOC: HO.HMGCLDS 14:53
PROVIDERS: PCP Internal Medicine; Visit Provider Internal Medicine
DX: R53.82 Chronic fatigue, unspecified (principal); M79.606 Pain in leg, unspecified; N92.6 Irregular menstruation, unspecified; R10.31 Right lower quadrant pain; R10.32 Left lower quadrant pain; H93.8X3 Other specified disorders of ear, bilateral
CPT/HCPCS: 36415; 81003; 82306; 82607; 82746; 84443; 84702; 85025; 85652; 86141; 96127

== ENCOUNTER 2023-12-26 07:31 | Outpatient (REF) | payer OTHER, SELFPAY ==
[2023-12-26 18:26] LABS: Bacterial Vaginosis PCR NEGATIVE (Negative); Candida Group PCR NOT DETECTED (Not Detect); Candida glab krusei PCR NOT DETECTED (Not Detect); Trichomonas vaginalis PCR NOT DETECTED (Not Detect)
== END 2023-12-26 07:32 | disposition home or self-care (01) ==
LOC: HO.LAB 07:31
PROVIDERS: PCP Internal Medicine; Visit Provider Advanced Practice Midwife
DX: R10.2 Pelvic and perineal pain (principal)
CPT/HCPCS: 0352U

== ENCOUNTER 2023-12-26 07:31 | Outpatient (AMB) | payer OTHER, SELFPAY ==
--- NOTE | 2023-12-26 08:02 | MHC.OFFVIS ---
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 LMP 05/2023. Occasional hot flashes. She denies any vaginal pressure pain, vaginal discharge or odor. Urine dip is negative today. Admits to having a clean diet mostly vegetarian, bloating and abdominal pain after ingesting eggs currently admits from the diet. Denies caffeine use, carbonated beverages, sugary drinks, admits to having artificial sweeteners with her beverages. Last Pap 2021-negative. History of uterine fibroids seen on abdominal CT scan in 2020-noted 3 distinct areas 3.4 cm or less. She is wondering if hormones would help her symptoms. [facility] Medical History (Updated 12/26/23 @ 08:47 by Melyssa Woods CNM) Fibroids Pressure sensation in both ears Urinary incontinence in female Dense breast tissue on mammogram Generalized anxiety disorder Acute urticaria Uterine fibroid Fatigue Annual visit for general adult medical examination with abnormal findings Family history of breast cancer in mother History of umbilical hernia Surgical History Hx of section Family History Father Hx of diabetes mellitus Mother HX: breast cancer Paternal Grandfather Colon cancer Social History Household Members: Spouse and Children Housing: House Alcohol intake: current Patient Tobacco Use Status: Never used Tobacco e-Cigarette/Vaping Use: Never Used service: No Current occupational status: employed Sexual orientation: Straight/Heterosexual Gender identity: Female Cognitive needs: No Hearing needs: No Vision needs: Yes Female Reproductive History Menstrual Age of Menarche: 18 Date of last menstrual period: 05/21/23 Total pregnancies: 3 Full term: 2 Premature: 0 Number of Living Children: 2 Ab induced: 0 Ab spontaneous: 1 Ectopics: 0 Multiple births: 0 Date of last pap smear: 09/19/21 History of abnormal pap smear: No History of STI: No Date of Mammogram: 11/21/23 History of abnormal mammogram: No Review of Systems Const All systems reviewed & are unremarkable except as noted in HPI and below Physical Exam Vital Signs: Last Vital Signs BP 102/64 12/26/23 08:18 BMI result Body Mass Index 22.1 Const General: cooperative, healthy appearing and no acute distress Orientation/consciousness: patient oriented x3 GI Inspection: Yes normal to inspection Palpation (GI): Soft to palpation and Other GI palpation findings present (Nontender) Rectal Exam - Female: visual inspection normal General: Yes bladder normal to palpation External Female Exam: normal appearance of the urethra Speculum Exam - Vagina: normal appearance of the vagina, normal palpation and normal vaginal discharge Speculum Exam - Cervix: normal appearance of the cervix and normal palpation Bimanual exam- vagina & uterus: normal bimanual exam, normal palpation, bladder normal to palpation, normal palpation, uterine shape normal, non-tender and enlarged Bimanual Exam- Adnexa, other: normal adnexae and cystocele Neuro General: patient oriented x3 Assessment & Plan Assessment & Plan (1) Incontinence: Code(s): R32 - Unspecified urinary incontinence Category: Medical (2) Fibroids: Code(s): D21.9 - Benign neoplasm of connective and other soft tissue, unspecified Category: Medical (3) Bloating: Code(s): R14.0 - Abdominal distension (gaseous) Plan Discussed: CT scan findings from 2020-04 identified areas of fibroid, largest was 3.4 cm. Plan pelvic ultrasound. BV panel obtained. Recommended pelvic floor PT and or additionally consult with the urology department for incontinence. Cystocele findings. Menopause verses perimenopause. Menopause is definitive of 1 year of no menses or 12 months in succession. Report any abnormal uterine bleeding in example prolonged episodes, or short intervals less than 24 days. Omit artificial sweeteners or other bladder triggers with food and fluids. Follow up in person for test results and recommendations. Role of HRT not currently recommended. Risks reviewed and indications. All of her questions and concerns were addressed to the best of my ability and shared decision making. She is agreeable to the plan of care. This note is constructed using voice recognition software. While every effort has been made to ensure accuracy, courtesy driver errors may have been included. Orders: Orders Bacterial Vaginosis Panel Today R10.2 - Pelvic and perineal pain US pelvic and transvaginal Today D21.9 - Benign neoplasm of connective and other soft tissue, unspecified, D25.9 - Leiomyoma of uterus, unspecified Referrals Urology Referral R14.0 - Abdominal distension (gaseous), R32 - Unspecified urinary incontinence Coding Level of Care Code Est Pt Level 4 (22117) Diagnoses Incontinence R32 Fibroids D21.9 Bloating R14.0
[2023-12-26 08:18] VITALS: BP 102/64; BMI 22.1
== END 2023-12-26 08:24 | disposition home or self-care (01) ==
PROVIDERS: PCP Internal Medicine; Visit Provider Advanced Practice Midwife
DX: R32 Unspecified urinary incontinence (principal); D21.9 Benign neoplasm of connective and other soft tissue, unspecified; R14.0 Abdominal distension (gaseous)
CPT/HCPCS: 99214

== ENCOUNTER 2024-01-01 14:11 | Outpatient (REF) | payer OTHER, SELFPAY | END 2024-01-01 14:12 | disposition home or self-care (01) | LOC: HO.US 14:11 | PROVIDERS: PCP Internal Medicine; Visit Provider Advanced Practice Midwife | DX: D25.9 Leiomyoma of uterus, unspecified (principal) | CPT/HCPCS: 76830; 76856 ==

== ENCOUNTER 2024-03-13 07:38 | Outpatient (AMB) | payer OTHER, SELFPAY ==
--- NOTE | 2024-03-13 07:39 | A.OFFVIS_ITS ---
Intake Visit Reasons: TV Us follow up Intake Note: cell #[phone] Scooping Machine Tender: Scooping Machine Tender Present Allergies No Known Allergies Allergy (Unknown, Verified 11/19/23 16:10) UNK Is last menstrual period known: Yes HPI Comments Details: Tele michelle visit. I spent 15 minutes speaking with the patient on the video call. Patient presents via video call to discuss: Ultrasound findings. Previously seen with concerns for urinary incontinence, pelvic bloating, abdominal pain, increased urination, low back pain, leg aches and fatigue. She reports her LMP was May of 2023. Since her last visit she reports identifying food sensitivities to dairy, particularly a eggs, and tofu. [facility] Medical History History of cyst of breast Fibroids Pressure sensation in both ears Urinary incontinence in female Generalized anxiety disorder Acute urticaria Uterine fibroid Fatigue Annual visit for general adult medical examination with abnormal findings Family history of breast cancer in mother History of umbilical hernia Surgical History Hx of section Family History Father Hx of diabetes mellitus Mother HX: breast cancer Paternal Grandfather Colon cancer Social History Household Members: Spouse and Children Housing: House Alcohol intake: current Patient Tobacco Use Status: Never used Tobacco e-Cigarette/Vaping Use: Never Used service: No Current occupational status: employed Sexual orientation: Straight/Heterosexual Gender identity: Female Cognitive needs: No Hearing needs: No Vision needs: Yes Female Reproductive History Menstrual Age of Menarche: 18 Review of Systems Const All systems reviewed & are unremarkable except as noted in HPI and below Endo Reports no additional complaints Physical Exam Const General: cooperative, healthy appearing and no acute distress Psych Appearance: well kempt Attitude: cooperative Thought process: Normal thought process present Telehealth Telehealth Telehealth Platform: [email or web address] Location of provider rendering services: practice address Location of patient: other Patient Identification confirmed using: Name, : Yes Telehealth method: video Patient verbally consented to treatment: Yes Patient verbally consented to billing insurance company: Yes Patient informed of any privacy concerns related to visit: Yes Results Reviewed Results Reviewed: [address] [address] Ultrasound Report Signed Patient: Janna Woodward MR#: [id number] : 1970 Acct:[id number] Age/Sex: 53 / F ADM Date: 01/01/24 Loc: HO.US Attending Dr: Melyssa Woods CNM Ordering Physician: Melyssa Woods CNM Date of Service: 01/01/24 Procedure(s): US pelvic and transvaginal Accession Number(s): [id number] cc: Vicenta Ornelas MD; Melyssa Woods CNM~ EXAMINATION:US PELVIS TRANSABDOMINAL AND TRANSVAGINAL CLINICAL INFORMATION: D21.9 - Benign neoplasm of connective and other soft tissue, unspecified COMPARISON: No priors available. LMP: May 2023 FINDINGS: UTERUS: The uterus is anteverted. Size: 9.1 x 4.6 x 5.4 cm. Uterine mass: Intramural uterine masses likely fibroids measuring up to 3.2 cm and 1 cm. Cervix: Grossly unremarkable. Endometrium: No ultrasound evidence of endometrial lesion. endometrial thickness measures 0.3 cm ADNEXA: Normal Right ovary: Normal in size. Left ovary: Normal in size. Doppler exam: Normal Doppler flow identified in both ovaries. FREE FLUID: Trace amount of free fluid. OTHER FINDINGS: None US/US pelvic and transvaginal IMPRESSION: 1. Intramural uterine masses likely fibroids, 2 of which were found and measured the largest measure up to 3.2 cm. 2. Exam otherwise normal. Electronically signed by: Elisha Mijares MD 02/16/2024 03:49 PM [facility] Assessment & Plan Assessment & Plan (1) Uterine fibroid: Code(s): D25.9 - Leiomyoma of uterus, unspecified Category: Medical Qualifiers: Uterine leiomyoma location: unspecified location Qualified Code(s): D25.9 - Leiomyoma of uterus, unspecified (2) Bloating: Code(s): R14.0 - Abdominal distension (gaseous) Plan: Discussed: Common causes for bloating with dietary intake, other causes. Advised to see a GI specialist for further evaluation. Food sensitivities testing by elimination and introduction. Common food allergens. Advised to speak with her primary care at the [facility] to initiate a referral for her GI consult. Plan Discussed: Ultrasound findings to fibroids. Counseled re: Leiomyoma: common pelvic neoplasm. Differential diagnosis-may include but not limited to- leiomyosarcoma which is a rare uterine sarcoma 3-7/100,000, difficult to distinguish from fibroids on ultrasound from uterine sarcoma's. Unlikely any single test will have a highly positive predictive value. Hysterectomy is not recommended for sole purpose of excluding malignant neoplasm. Consult for surgical exploration, medical treatment, other treatments, verses expectant management, pros and cons, risks and benefits. Expectant management follow up in 6 months, then yearly for stability. Patient prefers to proceed with expectant management. Report any AUB, pelvic pressure, bloating, or pain. Referral to MD if indicated for level of care if indicated. Ultrasound follow up tele visit to be scheduled. Additionally we will need to schedule her annual appointment. Total time I personally spent on visit and management today: ?25 minutes. Time spent included review of pertinent office notes in the electronic health record; review of laboratory and imaging results; review of personal family medical history; discussing diagnosis and plan of care with the patient; documenting the encounter in the EMR. Orders: Orders US pelvic and transvaginal 06/23/24 D25.9 - Leiomyoma of uterus, unspecified Coding Level of Care Code Tele Est Pt Level 3 (40387) Diagnoses Uterine leiomyoma, unspecified location D25.9 Uterine leiomyoma location: unspecified location Bloating R14.0
== END 2024-03-13 09:40 | disposition home or self-care (01) ==
LOC: HO.HWS 07:39
PROVIDERS: PCP Internal Medicine; Visit Provider Advanced Practice Midwife
DX: D25.9 Leiomyoma of uterus, unspecified (principal); R14.0 Abdominal distension (gaseous)
CPT/HCPCS: 99213

== ENCOUNTER 2024-08-25 07:27 | Outpatient (REF) | payer OTHER, SELFPAY ==
--- NOTE | ~2024-08-25 | MM_ITS ---
EXAMINATION: MM SCREENING DIGITAL BREAST TOMOSYNTHESIS, BILATERAL CLINICAL INFORMATION: Screening. Asymptomatic. COMPARISON: Mammography: Comparison is made with available priors TECHNIQUE: Digital breast mammography with tomosynthesis is performed in both the craniocaudal and mediolateral oblique views along with computer-aided detection (CAD). FINDINGS: The breasts are extremely dense, which lowers the sensitivity of mammography (ACR BI-RADS breast composition Category d). Bilateral circumscribed oval masses which wax and wane consistent with benign fibrocystic changes. Some were demonstrated to be simple cyst on prior ultrasound. There are no significant masses, abnormal calcifications, or other abnormalities. MM/MM tomosynthesis screening BI IMPRESSION: No mammographic evidence of malignancy. ASSESSMENT: BI-RADS BI-RADS 2 - Benign Findings RECOMMENDATION: Routine annual mammography screening. 1 year F/U This examination should not preclude the clinical evaluation of a suspicious palpable abnormality. This patient's information was entered into a reminder system with a target due date for their next mammogram. Electronically signed by: Georgina Tyson DO 09/02/2024 04:58 PM EDT
== END 2024-08-25 07:28 | disposition home or self-care (01) ==
LOC: HO.MAMMO 07:27
PROVIDERS: PCP Internal Medicine; Visit Provider Internal Medicine
DX: Z12.31 Encounter for screening mammogram for malignant neoplasm of breast (principal)
CPT/HCPCS: 77063; 77067

== ENCOUNTER → 2024-08-25 07:30 | Outpatient (BNV) | payer OTHER, SELFPAY | PROVIDERS: PCP Internal Medicine; Visit Provider Internal Medicine | DX: Z12.31 Encounter for screening mammogram for malignant neoplasm of breast (principal) | CPT/HCPCS: 77063; 77067 ==

== ENCOUNTER 2024-12-03 14:50 | Outpatient (AMB) | payer OTHER, SELFPAY ==
--- NOTE | 2024-12-03 14:55 | A.OFFPC_ITS ---
Vital Signs 12/03/24 14:59 Height 5 ft 7 in Weight 130 lb BMI 20.4 BP 100/68 Blood Pressure Location Rt brachial Position Sitting Respiration 15 Pulse 60 Pulse Source Pulse Oximeter Temp 97.6 F Temp Source Oral Pulse Oximetry (%) 99 Oxygen Delivery Method Room Air Intake Visit Reasons: Annual PE, resched Intake Note: Pt is here today for her PE: Last papsmear 08/11/21 , mammogram 08/25/24, colonoscopy 09/09/24 Allergies No Known Allergies Allergy (Unknown, Verified 12/03/24 15:36) UNK Medication List - Last Reconciled 12/03/24 by Vicenta Ornelas MD albuterol sulfate 90 mcg/actuation 2 puffs inhalation Q6H PRN Tobacco use date assessed: 12/03/24 Dental Screening Dental Screen Date: 12/03/24 Did you have a dental visit in the last 12 months?: Yes Did you have a dental problem in the last 6 months where you did not have access to dental care?: No Was dental information given to patient?: Patient has dentist HPI Annual PE, resched HPI Details 54-year-old lady with history of bilater al breast cysts, positive family history of breast cancer in mother before age 50, history of uterine fibroid, here today for her physical exam. She is up-to-date with her screening for cervical cancer with last Pap smear done in 2021 by [facility] showing negative findings. Last mammogram done August 2024 showed benign findings. Patient however has recurrent cysts in both breasts present now for years, last breast ultrasound done 2023 showed multiple cysts in both breasts the largest of which is at the 12:00 axis in her left breast. Cologuard was done 09/09/2024 with negative findings Complaining of decreased hearing coming from the left ear, muffled sound and slight pain inside left ear canal reported. [facility] Medical History (Updated 12/07/24 @ 23:52 by Vicenta Ornelas MD) Hearing loss of both ears Bilateral breast cysts History of cyst of breast Fibroids Pressure sensation in both ears Urinary incontinence in female Generalized anxiety disorder Acute urticaria Uterine fibroid Fatigue Annual visit for general adult medical examination with abnormal findings Family history of breast cancer in mother History of umbilical hernia Surgical History Hx of section Family History Father Hx of diabetes mellitus Mother HX: breast cancer Paternal Grandfather Colon cancer Social History Household Members: Spouse and Children Housing: House Alcohol intake: current Patient Tobacco Use Status: Never used Tobacco e-Cigarette/Vaping Use: Never Used service: No Current occupational status: employed Sexual orientation: Straight/Heterosexual Gender identity: Female Cognitive needs: No Hearing needs: No Vision needs: Yes Female Reproductive History Menstrual Age of Menarche: 18 Questionnaire PHQ-9 Over the last 2 weeks, how often have you been bothered by any of the following problems? 1. Little interest or pleasure in doing things: not at all 2. Feeling down, depressed, or hopeless: not at all 3. Trouble falling or staying asleep, or sleeping too much: not at all 4. Feeling tired or having little energy: not at all 5. Poor appetite or overeating: not at all 6. Feeling bad about yourself - or that you are a failure or have let yourself or your family down: not at all 7. Trouble concentrating on things, such as reading the newspaper or watching television: not at all 8. Moving or speaking so slowly that other people could have noticed. Or the opposite - being so fidgety or restless that you have been moving around a lot more than usual: not at all 9. Thoughts that you would be better off or of hurting yourself in some way: not at all Total score: 0 Depression Screening Interpretation: Negative Depression Screening Done: Yes 36144 - PHQ-9 Billing: Yes Source: Developed by Drs. Mohamud March, Anuja Cornejo, Diego Dai and colleagues, with an educational amanda from [employer]. Thrive Questionnaire Date Thrive assessed: 11/26/24 I am a: Patient What is your living situation today?: I have a steady place to live Within the past 12 months, did the food you bought not last and you didn't have the money to get more?: Never true Within the past 12 months, did you worry whether your food would run out before you got money to buy more?: Never true Do you have trouble paying for medicines?: No Do you have trouble getting transportation to medical appointments?: No Do you have trouble paying your heating and electricity bill?: No Do you have trouble taking care of your child, family member or friend?: No Do you have trouble with day-to-day activities such as bathing, preparing meals, shopping, managing finances, etc.?: No Are you currently unemployed and looking for a job?: No Are you interested in more education?: No Please select the resources that you would like help with: None Currently or been in a relationship where the following occur: No concerns reported THRIVE Score: 0 AUDIT C Alcohol Use Questionnaire (AUDIT-C) 1. How often do you have a drink containing alcohol?: Never 3. How often do you have six or more drinks on one occasion?: Never Total Score: 0 KENN-7 AMB Questionnaire KENN-7 Date KENN - 7 assessed: 12/03/24 Feeling nervous, anxious, or on edge: 0 = Not at all Not being able to stop or control worryin = Not at all Worrying too much about different things: 0 = Not at all Trouble relaxin = Not at all Being so restless that it is hard to sit still: 0 = Not at all Becoming easily annoyed or irritable: 0 = Not at all Feeling afraid as if something awful might happen: 0 = Not at all Total KENN-7 score (0-4 normal; 5-9 mild; 10-14 moderate; 15-21 severe): 0 Source: Developed by Drs. Mohamud March, Anuja Cornejo, Diego Dai and colleagues, with an educational amanda from [employer]. KENN-7 Assessment Billing KENN-7 Assessment Tool: KENN-7 Assessment 69743 Review of Systems Const All systems reviewed & are unremarkable except as noted in HPI and below Eyes Reports no additional complaints ENT Reports as per HPI, Denies dizziness and Denies disequilibrium Card Reports no additional complaints Resp Reports no additional complaints GI Denies change in bowel habits Reports no additional complaints Musc Reports no additional complaints Skin/Breast Reports as per HPI Neuro Denies dizziness and Denies disequilibrium Psych Reports no additional complaints Endo Reports no additional complaints Remigio/Lymph Reports no additional complaints Aller/Immun Reports no additional complaints Physical exam (Primary Care) Vital Signs: Last Vital Signs Temp 97.6 F 12/03/24 14:59 Pulse 60 12/03/24 14:59 Resp 15 12/03/24 14:59 BP 100/68 12/03/24 14:59 Pulse Ox 99 12/03/24 14:59 Oxygen Delivery Method Room Air 12/03/24 14:59 BMI result Body Mass Index 20.4 Tobacco/Smoking Status: Tobacco use Status Tobacco use date assessed 12/03/24 12/03/24 14:59 Patient Tobacco Use Status Never used Tobacco 12/03/24 14:57 e-Cigarette/Vaping Use Never Used 12/03/24 14:57 PHQ-9: PHQ-9 Score PHQ-9: Total score 0 12/03/24 15:41 Depression Screening Interpretation: Negative Thrive Assessment: Date of Thrive Assessment Date Thrive assessed 11/26/24 12/03/24 14:57 Currently or been in a relationship where the following occur: No concerns reported Advance Care Planning discussion: Completed/Scanned Date of discussion: 12/03/24 Who was present: Patient Forms completed: Health Care Proxy Time spent: 16-45 minutes Actual minutes spent: 2 Const General: no acute distress and alert Nutritional Appearance: average body habitus Orientation/consciousness: patient oriented x3 HENMT Head: Yes normocephalic Ears: external ears normal, TM's normal bilaterally and Abnormal EAC present excessive cerumen on the left, erythema on the left and EAC tenderness on the left; no otic discharge General nose exam: Normal external nose present Face and sinus: Yes face symmetric and No sinus tenderness Mouth: Normal oral and palatal mucosa present and moist mucous membranes Eyes General: appearance normal, both eyes and all related structures Eyelids: Yes eyelids normal Conjunctivae: conjunctivae normal Sclerae: sclerae normal Pupils: Equal, round and reactive pupils present EOM: EOMs intact bilaterally Neck Neck: Yes full ROM, Yes no lymphadenopathy and Yes supple Thyroid: Thyroid normal Chest Breast/axilla palpation: abnormal palpation of the breast (nodular fluctuant nontender mass on both breasts , largest at 12:00 left ) Resp Effort & Inspection: normal respiratory effort and able to speak in complete sentences Auscultation: clear to auscultation bilaterally Cardio Rate: regular rate Rhythm: regular rhythm Heart sounds: S1 normal heart sound present and S2 normal heart sound present GI Other: mild diastasis recti, negative cologuard result 09/09/24 Palpation (GI): Soft to palpation, nontender, no guarding and no masses Percussion: Yes tympanic to percussion Auscultation: normal bowel sounds General: Yes no CVA tenderness Back/Spine/Pelvis Back: no CVA tenderness and No back tenderness Skin General skin exam: no rashes or lesions noted Neuro General: patient oriented x3, gait normal, moves all extremities, Normal light touch and pain sensation, no focal motor deficits and CN's II-XI intact bilaterally Cranial nerves: Yes Equal, round and reactive pupils present Cognition (Neuro): normal cognition Gait exam (Neuro): Normal gait present Motor exam (neuro): 5/5 motor strength present throughout Extrem General: Yes normal to inspection, Yes full ROM, Yes no joint enlargement, Yes no pedal edema and Yes normal gait Psych Appearance: grossly normal and well kempt Mental Status: mental status grossly normal Speech and movement: Normal speech and movement present Affect: normal affect Coding Level of Care Code Est Pt Prev Care 40-64y(63138) Diagnoses Annual visit for general adult medical examination with abnormal findings Z00.01 Bilateral breast cysts N60.01; N60.02 Acute diffuse otitis externa of left ear H60.312 Otitis externa type: diffuse Mixed conductive and sensorineural hearing loss of both ears H90.6 Hearing loss type: mixed conductive and sensorineural Additional Codes PHQ-9 - 71555 - PHQ-9 Billing: Yes ([id number]) KENN-7 Assessment Billing - KENN-7 Assessment Tool: KENN-7 Assessment 60996 ([id number]) Vital Signs *Quality* - Advance Care Planning discussion: Completed/Scanned ([id number]) Vital Signs *Quality* - Time spent: 16-45 minutes ([id number]) Assessment & Plan Assessment & Plan (1) Annual visit for general adult medical examination with abnormal findings: Code(s): Z00.01 - Encounter for general adult medical examination with abnormal findings Category: Medical Plan: Fasting lipid panel and vitamin-D and B12 level ordered. Reviewed recent fasting lab results done by her insurance, which showed normal CBC, electrolytes, renal function , glucose , liver enzymes. Recommended dental visit every 6 months and regular eye exams, at least every 2 years. Take adequate calcium in diet and vitamin-D 3 at 2000 IU per cap once a day, in addition to weight-bearing exercises to help maintain good muscle tone and weight control. Instructed to do self-breast exam, and continue to get yearly mammogram. Has bilateral breast cysts, referred to breast surgery for further evaluation manage. Patient declined flu vaccine on this visit. Declined COVID booster. Up-to-date with her colon cancer screening, with a negative Cologuard done this year (2) Bilateral breast cysts: Code(s): N60.01 - Solitary cyst of right breast; N60.02 - Solitary cyst of left breast Category: Medical Plan: Referred to breast surgeon for further evaluation and management. Patient concerned as her mother from breast cancer before age 50 (3) Acute otitis externa of left ear: Code(s): H60.502 - Unspecified acute noninfective otitis externa, left ear Qualifiers: Otitis externa type: diffuse Qualified Code(s): H60.312 - Diffuse otitis externa, left ear Plan: Prescription sent for [id number] instill 4 drops to left ear canal every 8 hours for 5 days. Call if no improvement of symptoms after using ear drops (4) Hearing loss of both ears: Comment: noted on audiologic exam in 2023 Code(s): H91.93 - Unspecified hearing loss, bilateral Category: Medical Qualifiers: Hearing loss type: mixed conductive and sensorineural Qualified Code(s): H90.6 - Mixed conductive and sensorineural hearing loss, bilateral Plan: ENT consult obtained Orders: Orders Vitamin B12 and Folate 12/03/24 R79.89 - Other specified abnormal findings of blood chemistry, Z00.01 - Encounter for general adult medical examination with abnormal findings, Z13.220 - Encounter for screening for lipoid disorders, Z78.0 - Asymptomatic menopausal state Vitamin D 25-OH Total 12/03/24 R79.89 - Other specified abnormal findings of blood chemistry, Z00.01 - Encounter for general adult medical examination with abnormal findings, Z13.220 - Encounter for screening for lipoid disorders, Z78.0 - Asymptomatic menopausal state Lipid Panel 12/03/24 R79.89 - Other specified abnormal findings of blood chemistry, Z00.01 - Encounter for general adult medical examination with abnormal findings, Z13.220 - Encounter for screening for lipoid disorders, Z78.0 - Asymptomatic menopausal state Referrals Ear/Nose/Throat Referral H91.93 - Unspecified hearing loss, bilateral General Surgery Referral N60.01 - Solitary cyst of right breast, N60.02 - Solitary cyst of left breast, Z80.3 - Family history of malignant neoplasm of breast Medications: New [id number]-UB 3.5-10,000-1 mg/mL-unit/mL-% 4 drps otic (ear) left Q8H 10 mL 0RF 5 days
[2024-12-03 14:59] VITALS: BP 100/68; PULSE 60; RESP 15; TEMP 36.4; O2SAT 99; BMI 20.4
== END 2024-12-03 15:43 | disposition home or self-care (01) ==
LOC: HO.HMCC 14:50
PROVIDERS: PCP Internal Medicine; Visit Provider Internal Medicine
DX: Z00.01 Encounter for general adult medical examination with abnormal findings (principal); N60.01 Solitary cyst of right breast; N60.02 Solitary cyst of left breast; H60.312 Diffuse otitis externa, left ear; H90.6 Mixed conductive and sensorineural hearing loss, bilateral; Z00.00 Encounter for general adult medical examination without abnormal findings

== ENCOUNTER → 2024-12-03 14:50 | Outpatient (BNVA) | payer OTHER, SELFPAY | PROVIDERS: PCP Internal Medicine; Visit Provider Internal Medicine | DX: Z00.01 Encounter for general adult medical examination with abnormal findings (principal); N60.01 Solitary cyst of right breast; N60.02 Solitary cyst of left breast; H60.312 Diffuse otitis externa, left ear; H90.6 Mixed conductive and sensorineural hearing loss, bilateral | CPT/HCPCS: 96127 ==